=== PATIENT | male | born 1950 | race Caucasian/White ===

== ENCOUNTER 2019-06-02 20:59 | Inpatient (IN) | payer OTHER ==
[2019-06-02] MEDS ORDERED: ALBUTEROL/IPRATROPIUM (NEB) 3 ML AMP HHN (22:30)
[2019-06-02] MEDS ORDERED: HYDROCODONE/APAP (5/325) TAB PO (22:30)
[2019-06-02] MEDS ORDERED: ACETAMINOPHEN 325 MG TAB PO (22:30)
[2019-06-02] MEDS ORDERED: ONDANSETRON 4 MG INJ IV (22:30)
[2019-06-02] MEDS ORDERED: PIPER-TAZO 3.375 GM IV (PMX) 100 ML IVPB (23:00)
[2019-06-02] MEDS ORDERED: CYCLOBENZAPRINE 10 MG TAB PO (23:00)
[2019-06-02] MEDS ORDERED: VANCOMYCIN IV PER PHARMACY XX (23:00)
[2019-06-02] MEDS: morphine 2 MG INJ IV (23:10)
[2019-06-02] MEDS: PIPER-TAZO 2.25 GM (PMX) 50 ML IVPB (23:23)
[2019-06-03] MEDS ORDERED: PIPER-TAZO 3.375 GM IV (PMX) 100 ML IVPB
[2019-06-03] MEDS: VANCOMYCIN 1 GM 250 ML IVPB (00:27)
[2019-06-03] MEDS ORDERED: SODIUM CHLORIDE 0.9% 1L BAG IV (01:30)
[2019-06-03] MEDS: PANTOPRAZOLE (EC) 40 MG TAB PO (05:14)
[2019-06-03] MEDS: PIPER-TAZO 2.25 GM (PMX) 50 ML IVPB ×3 (05:14→21:40)
[2019-06-03 06:23] LABS: ADD MAN DIFF? NO
[2019-06-03] MEDS: HYDROCODONE/APAP (5/325) TAB PO (06:32)
[2019-06-03 06:37] LABS: BASOPHILS % 0.3 % (0.0-2.0); HEMATOCRIT 32.4 % (42.0-52.0); HEMOGLOBIN 10.4 g/dl (14.0-18.0); LYMPHOCYTES # 0.9 10^3/ul (0.8-2.9); LYMPHOCYTES % 12.5 % (15.0-51.0); MEAN CORPUSCULAR HEMOGLOBIN 26.6 pg (29.0-33.0); MEAN CORPUSCULAR HGB CONC 32.1 g/dl (32.0-37.0); MEAN CORPUSCULAR VOLUME 82.9 fl (82.0-101.0); MEAN PLATELET VOLUME 8.6 fl (7.4-10.4); MONOCYTE # 0.6 10^3/ul (0.3-0.9); MONOCYTES % 8.1 % (0.0-11.0); NEUTROPHIL # 5.5 10^3/ul (1.6-7.5); NEUTROPHILS % 78.7 % (39.0-77.0); PLATELET COUNT 347 10^3/UL (140-415); RED BLOOD COUNT 3.91 10^6/ul (4.70-6.10); RED CELL DISTRIBUTION WIDTH 14.9 % (11.5-14.5)
[2019-06-03 07:03] LABS: ALANINE AMINOTRANSFERASE 8 IU/L (13-69); ALBUMIN 3.4 g/dl (3.3-4.9); ALBUMIN/GLOBULIN RATIO 0.94; ALKALINE PHOSPHATASE 72 IU/L (42-121); ANION GAP 16 (5-13); ASPARTATE AMINO TRANSFERASE 16 IU/L (15-46); BILIRUBIN,INDIRECT 0.1 mg/dl (0-1.1); BILIRUBIN,TOTAL 0.1 mg/dl (0.2-1.3); BLOOD UREA NITROGEN 71 mg/dl (7-20); CARBON DIOXIDE 25 mmol/L (21-31); CHLORIDE 94 mmol/L (97-110); CHOL/HDL RATIO 4.2 RATIO; CHOLESTEROL 158 mg/dl (100-200); CREATININE 10.14 mg/dl (0.61-1.24); Estimated GFR 5 mL/min (>60); GLUCOSE 166 mg/dl (70-220); HDL CHOLESTEROL 37 mg/dl (30-78); LDL CHOLESTEROL,CALCULATED 102 mg/dl; MAGNESIUM 2.3 mg/dl (1.7-2.5); POTASSIUM 5.5 mmol/L (3.5-5.1); SODIUM 135 mmol/L (135-144); TRIGLYCERIDES 96 mg/dl (0-149)
[2019-06-03 07:23] LABS: HEPATITIS B SURFACE ANTIGEN NEGATIVE (NEGATIVE)
[2019-06-03 07:44] LABS: HEMOGLOBIN A1C 4.9 % (0-5.9)
[2019-06-03] MEDS: SEVELAMER CARBONATE 800 MG TABLET PO ×3 (08:45→17:55)
[2019-06-03] MEDS: AMLODIPINE 10 MG TAB PO (08:46)
[2019-06-03] MEDS: HEPARIN 5,000 UNIT/1 ML VIAL SC ×2 (08:52→21:53)
[2019-06-03] MEDS ORDERED: NON-FORMULARY/PATIENT OWN MED (Omeprazole* 20 MG) PO (09:00)
[2019-06-03] MEDS: HEPARIN 1000 UNITS/ML 10 ML INJ CATHETER (12:23)
[2019-06-03] MEDS: METHOCARBAMOL 500 MG TAB PO ×2 (14:07→21:39)
[2019-06-03] MEDS: morphine 2 MG INJ IV (16:35)
[2019-06-03] MEDS: GABAPENTIN 100 MG CAP PO (21:39)
[2019-06-03] MEDS: OXYCODONE/ACETAMINOPHEN (10/325) TAB PO (21:40)
[2019-06-04] MEDS: PANTOPRAZOLE (EC) 40 MG TAB PO (06:32)
[2019-06-04] MEDS: OXYCODONE/ACETAMINOPHEN (10/325) TAB PO ×3 (06:32→22:09)
[2019-06-04] MEDS: PIPER-TAZO 2.25 GM (PMX) 50 ML IVPB ×2 (06:32→13:03)
[2019-06-04 06:46] LABS: ADD MAN DIFF? NO
[2019-06-04 06:49] LABS: BASOPHILS % 0.6 % (0.0-2.0); EOSINOPHILS # 0.1 10^3/ul (0.0-0.5); EOSINOPHILS % 1.7 % (0.0-7.0); HEMATOCRIT 31.4 % (42.0-52.0); HEMOGLOBIN 9.8 g/dl (14.0-18.0); LYMPHOCYTES # 1.4 10^3/ul (0.8-2.9); LYMPHOCYTES % 19.9 % (15.0-51.0); MEAN CORPUSCULAR HEMOGLOBIN 26.5 pg (29.0-33.0); MEAN CORPUSCULAR HGB CONC 31.2 g/dl (32.0-37.0); MEAN CORPUSCULAR VOLUME 84.9 fl (82.0-101.0); MEAN PLATELET VOLUME 8.5 fl (7.4-10.4); MONOCYTES % 13.8 % (0.0-11.0); NEUTROPHIL # 4.6 10^3/ul (1.6-7.5); NEUTROPHILS % 63.7 % (39.0-77.0); PLATELET COUNT 342 10^3/UL (140-415)
[2019-06-04 06:49] LABS: WHITE BLOOD COUNT 7.3 10^3/ul (4.8-10.8)
[2019-06-04 07:09] LABS: C-REACTIVE PROTEIN 8.6 mg/dl (0.0-0.9)
[2019-06-04 07:10] LABS: ANION GAP 13 (5-13); BLOOD UREA NITROGEN 48 mg/dl (7-20); CALCIUM 8.8 mg/dl (8.4-10.2); CARBON DIOXIDE 28 mmol/L (21-31); CHLORIDE 98 mmol/L (97-110); CREATININE 7.18 mg/dl (0.61-1.24); Estimated GFR 8 mL/min (>60); GLUCOSE 100 mg/dl (70-220); MAGNESIUM 2.2 mg/dl (1.7-2.5); PHOSPHORUS 5.6 mg/dl (2.5-4.9); POTASSIUM 4.5 mmol/L (3.5-5.1); SODIUM 139 mmol/L (135-144)
[2019-06-04 08:43] LABS: ERYTHROCYTE SEDIMENTATION RATE 58 mm/Hr (0-20)
[2019-06-04] MEDS: SEVELAMER CARBONATE 800 MG TABLET PO ×3 (08:46→17:12)
[2019-06-04] MEDS: GABAPENTIN 100 MG CAP PO ×2 (08:46→20:42)
[2019-06-04] MEDS: METHOCARBAMOL 500 MG TAB PO (08:46)
[2019-06-04] MEDS: AMLODIPINE 10 MG TAB PO (08:47)
[2019-06-04] MEDS: HEPARIN 5,000 UNIT/1 ML VIAL SC ×2 (08:54→20:44)
[2019-06-04 12:38] LABS: PROCALCITONIN 1.45 ng/mL (0.00-0.10)
[2019-06-04] MEDS: POLYETHYLENE GLYCOL 17 GM PACKET PO (13:30)
[2019-06-04 13:40] LABS: PROSTATE SPECIFIC ANTIGEN 4.7 ng/ml (0.0-4.0)
[2019-06-04] MEDS: CEFTRIAXONE 1 GM/50 ML (PMX) 50 ML IVPB (16:05)
[2019-06-04 16:39] LABS: ADD UMIC YES; UR ASCORBIC ACID NEGATIVE (NEGATIVE); UR BILIRUBIN (Dip) NEGATIVE (NEGATIVE); UR BLOOD (Dip) NEGATIVE (NEGATIVE); UR CLARITY CLEAR (CLEAR); UR COLOR YELLOW (YELLOW); UR GLUCOSE (Dip) 1+ mg/dL (NEGATIVE); UR KETONES (Dip) NEGATIVE (NEGATIVE); UR LEUKOCYTE ESTERASE (Dip) NEGATIVE Leu/ul (NEGATIVE); UR NITRITE (Dip) NEGATIVE (NEGATIVE); UR RBC 1 /HPF (0-5); UR TOTAL PROTEIN (Dip) 3+ mg/dl (NEGATIVE); UR UROBILINOGEN (Dip) NEGATIVE (NEGATIVE); UR WBC 3 /HPF (0-5)
[2019-06-04] MEDS: morphine 2 MG INJ IV (19:35)
[2019-06-04] MEDS: DOCUSATE SODIUM 100 MG CAP PO (20:42)
[2019-06-05] MEDS: PANTOPRAZOLE (EC) 40 MG TAB PO (06:05)
[2019-06-05] MEDS: morphine 2 MG INJ IV ×3 (06:19→23:55)
[2019-06-05 06:44] LABS: ADD MAN DIFF? NO
[2019-06-05 06:49] LABS: WHITE BLOOD COUNT 6.6 10^3/ul (4.8-10.8)
[2019-06-05 06:49] LABS: BASOPHIL # 0.1 10^3/ul (0.0-0.1); BASOPHILS % 1.1 % (0.0-2.0); EOSINOPHILS # 0.4 10^3/ul (0.0-0.5); HEMATOCRIT 31.7 % (42.0-52.0); HEMOGLOBIN 9.9 g/dl (14.0-18.0); LYMPHOCYTES # 1.7 10^3/ul (0.8-2.9); LYMPHOCYTES % 25.7 % (15.0-51.0); MEAN CORPUSCULAR HEMOGLOBIN 26.5 pg (29.0-33.0); MEAN CORPUSCULAR HGB CONC 31.2 g/dl (32.0-37.0); MEAN PLATELET VOLUME 8.3 fl (7.4-10.4); MONOCYTE # 0.9 10^3/ul (0.3-0.9); MONOCYTES % 13.4 % (0.0-11.0); NEUTROPHIL # 3.5 10^3/ul (1.6-7.5); NEUTROPHILS % 53.3 % (39.0-77.0); PLATELET COUNT 329 10^3/UL (140-415); RED BLOOD COUNT 3.73 10^6/ul (4.70-6.10); RED CELL DISTRIBUTION WIDTH 14.8 % (11.5-14.5)
[2019-06-05 07:04] LABS: INR 0.96; PROTIME 12.9 Sec (11.9-14.9)
[2019-06-05 07:05] LABS: PARTIAL THROMBOPLASTIN TIME 37.6 Sec (23.0-35.0)
[2019-06-05 07:22] LABS: VANCOMYCIN,RANDOM 9.1 ug/ml
[2019-06-05 07:33] LABS: ANION GAP 15 (5-13); BLOOD UREA NITROGEN 61 mg/dl (7-20); CALCIUM 8.5 mg/dl (8.4-10.2); CARBON DIOXIDE 26 mmol/L (21-31); CHLORIDE 95 mmol/L (97-110); CREATININE 9.16 mg/dl (0.61-1.24); Estimated GFR 6 mL/min (>60); GLUCOSE 129 mg/dl (70-220); POTASSIUM 4.6 mmol/L (3.5-5.1); SODIUM 136 mmol/L (135-144)
[2019-06-05] MEDS: SEVELAMER CARBONATE 800 MG TABLET PO ×3 (07:55→17:36)
[2019-06-05] MEDS: DOCUSATE SODIUM 100 MG CAP PO ×2 (08:14→20:49)
[2019-06-05] MEDS: GABAPENTIN 100 MG CAP PO ×2 (08:14→20:49)
[2019-06-05] MEDS: POLYETHYLENE GLYCOL 17 GM PACKET PO (08:17)
[2019-06-05] MEDS: AMLODIPINE 10 MG TAB PO (08:21)
[2019-06-05] MEDS: HEPARIN 5,000 UNIT/1 ML VIAL SC ×2 (08:21→20:59)
[2019-06-05] MEDS: LIDOCAINE 1% (MDV) 20 ML INJ INJ (10:12)
[2019-06-05] MEDS: OXYCODONE/ACETAMINOPHEN (10/325) TAB PO (13:47)
[2019-06-05] MEDS: VANCOMYCIN 1 GM 250 ML IVPB (13:50)
[2019-06-05] MEDS: CEFTRIAXONE 1 GM/50 ML (PMX) 50 ML IVPB ×2 (13:50→20:49)
[2019-06-06] MEDS ORDERED: SODIUM CHLORIDE 0.9% 1L BAG IV (01:30)
[2019-06-06] MEDS: PANTOPRAZOLE (EC) 40 MG TAB PO (05:16)
[2019-06-06 05:50] LABS: ADD MAN DIFF? NO
[2019-06-06 05:56] LABS: WHITE BLOOD COUNT 7.5 10^3/ul (4.8-10.8)
[2019-06-06 05:56] LABS: BASOPHIL # 0.1 10^3/ul (0.0-0.1); BASOPHILS % 0.7 % (0.0-2.0); EOSINOPHILS # 0.3 10^3/ul (0.0-0.5); EOSINOPHILS % 3.6 % (0.0-7.0); HEMATOCRIT 34.1 % (42.0-52.0); HEMOGLOBIN 10.3 g/dl (14.0-18.0); LYMPHOCYTES # 1.3 10^3/ul (0.8-2.9); LYMPHOCYTES % 17.3 % (15.0-51.0); MEAN CORPUSCULAR HEMOGLOBIN 25.8 pg (29.0-33.0); MEAN CORPUSCULAR HGB CONC 30.2 g/dl (32.0-37.0); MEAN CORPUSCULAR VOLUME 85.5 fl (82.0-101.0); MEAN PLATELET VOLUME 8.6 fl (7.4-10.4); MONOCYTES % 13.4 % (0.0-11.0); NEUTROPHIL # 4.9 10^3/ul (1.6-7.5); NEUTROPHILS % 64.6 % (39.0-77.0); PLATELET COUNT 313 10^3/UL (140-415); RED BLOOD COUNT 3.99 10^6/ul (4.70-6.10); RED CELL DISTRIBUTION WIDTH 14.8 % (11.5-14.5)
[2019-06-06 06:12] LABS: IRON 34 ug/dl (35-150)
[2019-06-06 06:16] LABS: ANION GAP 11 (5-13); BLOOD UREA NITROGEN 46 mg/dl (7-20); CARBON DIOXIDE 30 mmol/L (21-31); CHLORIDE 97 mmol/L (97-110); CREATININE 6.99 mg/dl (0.61-1.24); Estimated GFR 8 mL/min (>60); GLUCOSE 91 mg/dl (70-220); POTASSIUM 4.6 mmol/L (3.5-5.1); SODIUM 138 mmol/L (135-144)
[2019-06-06 06:21] LABS: % IRON SATURATION 17 % SAT (22-52); TOTAL IRON BINDING CAPACITY 195 ug/dl (241-421)
[2019-06-06] MEDS: morphine 2 MG INJ IV ×2 (06:43→10:20)
[2019-06-06 07:21] LABS: PHOSPHORUS 4.7 mg/dl (2.5-4.9)
[2019-06-06 07:21] LABS: MAGNESIUM 2.2 mg/dl (1.7-2.5)
[2019-06-06] MEDS: SEVELAMER CARBONATE 800 MG TABLET PO ×3 (08:00→17:43)
[2019-06-06] MEDS: AMLODIPINE 10 MG TAB PO (09:00)
[2019-06-06] MEDS: DOCUSATE SODIUM 100 MG CAP PO ×2 (09:00→23:01)
[2019-06-06] MEDS: HEPARIN 5,000 UNIT/1 ML VIAL SC ×2 (09:00→23:02)
[2019-06-06] MEDS: GABAPENTIN 100 MG CAP PO ×2 (09:00→23:01)
[2019-06-06] MEDS: CEFTRIAXONE 1 GM/50 ML (PMX) 50 ML IVPB ×2 (09:20→23:03)
[2019-06-06] MEDS: NACL 0.9% 3 ML SYG IV (10:21)
[2019-06-06] MEDS: IODIXANOL LOCM 100 ML BTL (10:38)
[2019-06-06] MEDS: SOD CHLORIDE 0.9% 100 ML (10:38)
[2019-06-06] MEDS ORDERED: ONDANSETRON 4 MG INJ IV (14:00)
[2019-06-06] MEDS ORDERED: OXYCODONE/ACETAMINOPHEN (5/325) TAB PO ×2 (14:00)
[2019-06-06] MEDS ORDERED: HYDROmorphONE 1 MG/5 ML IV SYRINGE IV ×3 (14:00)
[2019-06-06] MEDS: PROPOFOL 20 ML (14:12)
[2019-06-06] MEDS: FENTAnyl 50 MCG/ML VIAL (14:12)
[2019-06-06] MEDS: LIDOCAINE 1% (MDV) 20 ML INJ (14:26)
[2019-06-06] MEDS: SOD FERRIC GLUC COMPLX 125 MG in SOD CHLORIDE 0.9% 100 ML IVPB (17:40)
[2019-06-06] MEDS: POLYETHYLENE GLYCOL 17 GM PACKET PO (17:40)
[2019-06-06] MEDS: morphine 4 MG/ML VIAL IV ×2 (17:56→23:03)
[2019-06-06] MEDS: LIDOCAINE 1% (MDV) 20 ML INJ INJ (20:09)
[2019-06-07] MEDS: morphine 4 MG/ML VIAL IV ×4 (03:27→22:13)
[2019-06-07 05:44] LABS: ADD MAN DIFF? NO
[2019-06-07 05:48] LABS: BASOPHIL # 0.1 10^3/ul (0.0-0.1); BASOPHILS % 0.7 % (0.0-2.0); EOSINOPHILS # 0.3 10^3/ul (0.0-0.5); EOSINOPHILS % 4.5 % (0.0-7.0); HEMATOCRIT 30.5 % (42.0-52.0); HEMOGLOBIN 9.5 g/dl (14.0-18.0); LYMPHOCYTES # 1.1 10^3/ul (0.8-2.9); LYMPHOCYTES % 14.3 % (15.0-51.0); MEAN CORPUSCULAR HEMOGLOBIN 26.6 pg (29.0-33.0); MEAN CORPUSCULAR HGB CONC 31.1 g/dl (32.0-37.0); MEAN CORPUSCULAR VOLUME 85.4 fl (82.0-101.0); MEAN PLATELET VOLUME 8.6 fl (7.4-10.4); MONOCYTE # 1.2 10^3/ul (0.3-0.9); NEUTROPHIL # 4.8 10^3/ul (1.6-7.5); NEUTROPHILS % 64.1 % (39.0-77.0); PLATELET COUNT 253 10^3/UL (140-415); RED BLOOD COUNT 3.57 10^6/ul (4.70-6.10); RED CELL DISTRIBUTION WIDTH 14.9 % (11.5-14.5)
[2019-06-07 05:48] LABS: WHITE BLOOD COUNT 7.5 10^3/ul (4.8-10.8)
[2019-06-07] MEDS: PANTOPRAZOLE (EC) 40 MG TAB PO (06:00)
[2019-06-07 06:06] LABS: ANION GAP 10 (5-13); BLOOD UREA NITROGEN 32 mg/dl (7-20); CALCIUM 8.7 mg/dl (8.4-10.2); CARBON DIOXIDE 28 mmol/L (21-31); CHLORIDE 99 mmol/L (97-110); CREATININE 5.35 mg/dl (0.61-1.24); Estimated GFR 11 mL/min (>60); GLUCOSE 89 mg/dl (70-220); POTASSIUM 4.2 mmol/L (3.5-5.1); SODIUM 137 mmol/L (135-144)
[2019-06-07] MEDS: SEVELAMER CARBONATE 800 MG TABLET PO ×4 (08:00→18:00)
[2019-06-07] MEDS: HEPARIN 5,000 UNIT/1 ML VIAL SC ×2 (08:04→22:06)
[2019-06-07] MEDS: GABAPENTIN 100 MG CAP PO ×2 (08:37→22:03)
[2019-06-07] MEDS: DOCUSATE SODIUM 100 MG CAP PO ×2 (08:37→22:02)
[2019-06-07] MEDS: POLYETHYLENE GLYCOL 17 GM PACKET PO (08:37)
[2019-06-07] MEDS: AMLODIPINE 10 MG TAB PO (08:38)
[2019-06-07] MEDS: CEFTRIAXONE 1 GM/50 ML (PMX) 50 ML IVPB ×2 (08:38→22:03)
[2019-06-07] MEDS: HYDROCODONE/APAP (7.5/325) TAB PO (08:51)
[2019-06-07] MEDS: SOD FERRIC GLUC COMPLX 125 MG in SOD CHLORIDE 0.9% 100 ML IVPB (12:49)
[2019-06-07] MEDS ORDERED: SOD FERRIC GLUC COMPLX 125 MG in SOD CHLORIDE 0.9% 100 ML IVPB (13:00)
[2019-06-07] MEDS: LIDOCAINE 1% (MPF) 5 ML VIAL (15:08)
[2019-06-07] MEDS: LIDOCAINE 1% (MDV) 20 ML INJ INJ (17:23)
[2019-06-08] MEDS: morphine 4 MG/ML VIAL IV ×3 (04:46→20:18)
[2019-06-08] MEDS: PANTOPRAZOLE (EC) 40 MG TAB PO (05:44)
[2019-06-08 07:26] LABS: VANCOMYCIN,RANDOM < 5.0 ug/ml
[2019-06-08] MEDS: CEFTRIAXONE 1 GM/50 ML (PMX) 50 ML IVPB ×2 (08:25→20:17)
[2019-06-08] MEDS: HYDROCODONE/APAP (7.5/325) TAB PO (08:25)
[2019-06-08] MEDS: SEVELAMER CARBONATE 800 MG TABLET PO ×3 (08:26→17:52)
[2019-06-08] MEDS: DOCUSATE SODIUM 100 MG CAP PO ×2 (08:28→20:17)
[2019-06-08] MEDS: GABAPENTIN 100 MG CAP PO (08:28)
[2019-06-08] MEDS: AMLODIPINE 10 MG TAB PO (08:28)
[2019-06-08] MEDS: POLYETHYLENE GLYCOL 17 GM PACKET PO (08:29)
[2019-06-08] MEDS: HEPARIN 5,000 UNIT/1 ML VIAL SC ×2 (08:45→20:28)
[2019-06-08] MEDS: VANCOMYCIN 1 GM 250 ML IVPB (11:33)
[2019-06-08] MEDS: SOD FERRIC GLUC COMPLX 125 MG in SOD CHLORIDE 0.9% 100 ML IVPB (14:30)
[2019-06-08] MEDS: DICLOFENAC SODIUM 1% GEL 100 GM TUBE TP ×2 (17:00→20:18)
[2019-06-08] MEDS: PREGABALIN 75 MG CAP PO (20:17)
[2019-06-09] MEDS: PANTOPRAZOLE (EC) 40 MG TAB PO (05:56)
[2019-06-09] MEDS: morphine 4 MG/ML VIAL IV ×3 (06:50→21:55)
[2019-06-09 06:52] LABS: C-REACTIVE PROTEIN 20.2 mg/dl (0.0-0.9)
[2019-06-09] MEDS: PREGABALIN 75 MG CAP PO ×2 (08:46→21:22)
[2019-06-09] MEDS: SEVELAMER CARBONATE 800 MG TABLET PO ×3 (08:47→18:00)
[2019-06-09] MEDS: POLYETHYLENE GLYCOL 17 GM PACKET PO (08:47)
[2019-06-09] MEDS: DOCUSATE SODIUM 100 MG CAP PO ×2 (08:47→21:22)
[2019-06-09] MEDS: HYDROCODONE/APAP (7.5/325) TAB PO ×2 (08:47→19:11)
[2019-06-09] MEDS: CEFTRIAXONE 1 GM/50 ML (PMX) 50 ML IVPB ×2 (08:48→21:20)
[2019-06-09] MEDS: HEPARIN 5,000 UNIT/1 ML VIAL SC ×2 (08:50→21:34)
[2019-06-09] MEDS: AMLODIPINE 10 MG TAB PO ×2 (09:00→15:36)
[2019-06-09 09:10] LABS: ERYTHROCYTE SEDIMENTATION RATE 71 mm/Hr (0-20)
[2019-06-09 09:17] LABS: PROCALCITONIN 1.06 ng/mL (0.00-0.10)
[2019-06-09] MEDS: DICLOFENAC SODIUM 1% GEL 100 GM TUBE TP ×4 (13:00→21:23)
[2019-06-09] MEDS: SOD FERRIC GLUC COMPLX 125 MG in SOD CHLORIDE 0.9% 100 ML IVPB (15:35)
[2019-06-09] MEDS: CELECOXIB 100 MG CAP PO (21:22)
[2019-06-09] MEDS: LOSARTAN 25 MG TAB PO (21:22)
[2019-06-10 05:56] LABS: VANCOMYCIN,RANDOM 11.8 ug/ml
[2019-06-10] MEDS: PANTOPRAZOLE (EC) 40 MG TAB PO (06:30)
[2019-06-10] MEDS: SEVELAMER CARBONATE 800 MG TABLET PO ×3 (08:51→18:00)
[2019-06-10] MEDS: DOCUSATE SODIUM 100 MG CAP PO ×2 (08:52→21:44)
[2019-06-10] MEDS: CELECOXIB 100 MG CAP PO ×2 (08:53→21:43)
[2019-06-10] MEDS: PREGABALIN 75 MG CAP PO ×2 (08:53→21:47)
[2019-06-10] MEDS: AMLODIPINE 5 MG TAB PO (08:53)
[2019-06-10] MEDS: POLYETHYLENE GLYCOL 17 GM PACKET PO (08:54)
[2019-06-10] MEDS: CEFTRIAXONE 1 GM/50 ML (PMX) 50 ML IVPB ×2 (08:54→20:28)
[2019-06-10] MEDS: DICLOFENAC SODIUM 1% GEL 100 GM TUBE TP ×4 (08:54→23:02)
[2019-06-10] MEDS: LOSARTAN 25 MG TAB PO ×2 (08:54→21:45)
[2019-06-10] MEDS: HYDROCODONE/APAP (7.5/325) TAB PO ×2 (08:55→21:47)
[2019-06-10] MEDS: HEPARIN 5,000 UNIT/1 ML VIAL SC ×2 (09:03→21:51)
[2019-06-10] MEDS: SOD FERRIC GLUC COMPLX 125 MG in SOD CHLORIDE 0.9% 100 ML IVPB (12:47)
[2019-06-10] MEDS: VANCOMYCIN 1 GM 250 ML IVPB (14:06)
[2019-06-10] MEDS: morphine 4 MG/ML VIAL IV (14:15)
[2019-06-11 05:29] LABS: ADD MAN DIFF? NO
[2019-06-11 05:30] LABS: BASOPHIL # 0.1 10^3/ul (0.0-0.1); BASOPHILS % 0.7 % (0.0-2.0); EOSINOPHILS # 0.5 10^3/ul (0.0-0.5); EOSINOPHILS % 4.4 % (0.0-7.0); HEMATOCRIT 31.1 % (42.0-52.0); HEMOGLOBIN 9.4 g/dl (14.0-18.0); LYMPHOCYTES # 1.2 10^3/ul (0.8-2.9); LYMPHOCYTES % 12.1 % (15.0-51.0); MEAN CORPUSCULAR HEMOGLOBIN 26.3 pg (29.0-33.0); MEAN CORPUSCULAR HGB CONC 30.2 g/dl (32.0-37.0); MEAN CORPUSCULAR VOLUME 86.9 fl (82.0-101.0); MEAN PLATELET VOLUME 9.2 fl (7.4-10.4); MONOCYTE # 1.1 10^3/ul (0.3-0.9); MONOCYTES % 10.9 % (0.0-11.0); NEUTROPHIL # 7.3 10^3/ul (1.6-7.5); NEUTROPHILS % 71.5 % (39.0-77.0); PLATELET COUNT 308 10^3/UL (140-415); RED BLOOD COUNT 3.58 10^6/ul (4.70-6.10); RED CELL DISTRIBUTION WIDTH 14.9 % (11.5-14.5)
[2019-06-11 05:30] LABS: WHITE BLOOD COUNT 10.3 10^3/ul (4.8-10.8)
[2019-06-11] MEDS: PANTOPRAZOLE (EC) 40 MG TAB PO (05:38)
[2019-06-11 06:03] LABS: PHOSPHORUS 4.3 mg/dl (2.5-4.9)
[2019-06-11 06:28] LABS: ALANINE AMINOTRANSFERASE 18 IU/L (13-69); ALBUMIN 3.2 g/dl (3.3-4.9); ALBUMIN/GLOBULIN RATIO 0.91; ALKALINE PHOSPHATASE 97 IU/L (42-121); ANION GAP 12 (5-13); ASPARTATE AMINO TRANSFERASE 26 IU/L (15-46); BILIRUBIN,INDIRECT 0.1 mg/dl (0-1.1); BILIRUBIN,TOTAL 0.1 mg/dl (0.2-1.3); BLOOD UREA NITROGEN 39 mg/dl (7-20); CARBON DIOXIDE 31 mmol/L (21-31); CHLORIDE 97 mmol/L (97-110); CREATININE 6.64 mg/dl (0.61-1.24); Estimated GFR 8 mL/min (>60); GLUCOSE 88 mg/dl (70-220); POTASSIUM 4.4 mmol/L (3.5-5.1); SODIUM 140 mmol/L (135-144); TOTAL PROTEIN 6.7 g/dl (6.1-8.1)
[2019-06-11 07:32] LABS: ERYTHROCYTE SEDIMENTATION RATE 78 mm/Hr (0-20)
[2019-06-11] MEDS: POLYETHYLENE GLYCOL 17 GM PACKET PO (08:11)
[2019-06-11] MEDS: SEVELAMER CARBONATE 800 MG TABLET PO ×3 (08:11→17:27)
[2019-06-11] MEDS: CEFTRIAXONE 1 GM/50 ML (PMX) 50 ML IVPB ×2 (08:11→20:41)
[2019-06-11] MEDS: DOCUSATE SODIUM 100 MG CAP PO ×2 (08:11→20:42)
[2019-06-11] MEDS: CELECOXIB 100 MG CAP PO ×2 (08:12→20:41)
[2019-06-11] MEDS: PREGABALIN 75 MG CAP PO ×2 (08:12→20:43)
[2019-06-11] MEDS: LOSARTAN 25 MG TAB PO ×2 (08:12→20:41)
[2019-06-11] MEDS: AMLODIPINE 5 MG TAB PO (08:13)
[2019-06-11] MEDS: DICLOFENAC SODIUM 1% GEL 100 GM TUBE TP ×4 (08:14→20:43)
[2019-06-11] MEDS: HEPARIN 5,000 UNIT/1 ML VIAL SC ×2 (08:15→20:45)
[2019-06-11] MEDS: HYDROCODONE/APAP (7.5/325) TAB PO ×2 (08:28→15:52)
[2019-06-11] MEDS: traMADol 50 MG TAB PO ×2 (12:10→20:43)
[2019-06-11] MEDS: metroNIDAZOLE 500 MG/NS (PMX) 100 ML IVPB ×2 (14:37→22:04)
[2019-06-12] MEDS: PANTOPRAZOLE (EC) 40 MG TAB PO (05:31)
[2019-06-12] MEDS: metroNIDAZOLE 500 MG/NS (PMX) 100 ML IVPB (05:31)
[2019-06-12 06:10] LABS: ANION GAP 11 (5-13); BLOOD UREA NITROGEN 52 mg/dl (7-20); CALCIUM 8.8 mg/dl (8.4-10.2); CARBON DIOXIDE 26 mmol/L (21-31); CHLORIDE 96 mmol/L (97-110); CREATININE 8.14 mg/dl (0.61-1.24); Estimated GFR 7 mL/min (>60); GLUCOSE 81 mg/dl (70-220); POTASSIUM 4.6 mmol/L (3.5-5.1); SODIUM 133 mmol/L (135-144)
[2019-06-12 06:32] LABS: C-REACTIVE PROTEIN 22.1 mg/dl (0.0-0.9)
[2019-06-12 06:47] LABS: VANCOMYCIN,RANDOM 20.7 ug/ml
[2019-06-12 08:26] LABS: ERYTHROCYTE SEDIMENTATION RATE 83 mm/Hr (0-20)
[2019-06-12] MEDS: traMADol 50 MG TAB PO ×3 (08:41→21:21)
[2019-06-12] MEDS: CEFTRIAXONE 1 GM/50 ML (PMX) 50 ML IVPB (08:41)
[2019-06-12] MEDS: PREGABALIN 75 MG CAP PO ×2 (08:41→21:22)
[2019-06-12] MEDS: DOCUSATE SODIUM 100 MG CAP PO ×2 (08:41→21:21)
[2019-06-12] MEDS: CELECOXIB 100 MG CAP PO ×2 (08:41→21:21)
[2019-06-12] MEDS: POLYETHYLENE GLYCOL 17 GM PACKET PO (08:42)
[2019-06-12] MEDS: SEVELAMER CARBONATE 800 MG TABLET PO ×3 (08:42→17:36)
[2019-06-12] MEDS: HEPARIN 5,000 UNIT/1 ML VIAL SC (08:43)
[2019-06-12] MEDS: DICLOFENAC SODIUM 1% GEL 100 GM TUBE TP ×4 (08:44→21:27)
[2019-06-12] MEDS: LOSARTAN 25 MG TAB PO ×2 (08:48→21:23)
[2019-06-12] MEDS: AMLODIPINE 5 MG TAB PO (08:49)
[2019-06-12] MEDS: LIDOCAINE 1% (MDV) 20 ML INJ INJ (09:44)
[2019-06-12] MEDS ORDERED: MEROPENEM 500MG/50 ML (PMX) 50 ML IVPB (10:00)
[2019-06-12] MEDS: RIFAMPIN 300 MG CAP PO (10:00)
[2019-06-12 11:40] LABS: INR 0.94; PROTIME 12.7 Sec (11.9-14.9)
[2019-06-12] MEDS: MEROPENEM 1 GM/50ML(PMX) 50 ML IVPB (13:40)
[2019-06-12] MEDS: HYDROCODONE/APAP (7.5/325) TAB PO (16:00)
[2019-06-12] MEDS: morphine 4 MG/ML VIAL IV (20:06)
[2019-06-12] MEDS: MEROPENEM 500MG/50 ML (PMX) 50 ML IVPB (21:21)
[2019-06-12] MEDS: LORAZEPAM 2 MG INJ IV (22:44)
[2019-06-13 05:40] LABS: ADD MAN DIFF? NO
[2019-06-13 05:43] LABS: WHITE BLOOD COUNT 8.6 10^3/ul (4.8-10.8)
[2019-06-13 05:43] LABS: BASOPHILS % 0.5 % (0.0-2.0); EOSINOPHILS # 0.3 10^3/ul (0.0-0.5); EOSINOPHILS % 3.2 % (0.0-7.0); HEMATOCRIT 27.7 % (42.0-52.0); HEMOGLOBIN 8.6 g/dl (14.0-18.0); LYMPHOCYTES # 1.2 10^3/ul (0.8-2.9); LYMPHOCYTES % 13.7 % (15.0-51.0); MEAN CORPUSCULAR HEMOGLOBIN 26.6 pg (29.0-33.0); MEAN CORPUSCULAR VOLUME 85.8 fl (82.0-101.0); MEAN PLATELET VOLUME 9.4 fl (7.4-10.4); MONOCYTES % 11.7 % (0.0-11.0); NEUTROPHILS % 70.4 % (39.0-77.0); PLATELET COUNT 277 10^3/UL (140-415); RED BLOOD COUNT 3.23 10^6/ul (4.70-6.10); RED CELL DISTRIBUTION WIDTH 15.1 % (11.5-14.5)
[2019-06-13] MEDS: PANTOPRAZOLE (EC) 40 MG TAB PO (05:44)
[2019-06-13 06:09] LABS: ANION GAP 10 (5-13); BLOOD UREA NITROGEN 39 mg/dl (7-20); CALCIUM 8.5 mg/dl (8.4-10.2); CARBON DIOXIDE 29 mmol/L (21-31); CHLORIDE 99 mmol/L (97-110); CREATININE 6.25 mg/dl (0.61-1.24); Estimated GFR 9 mL/min (>60); GLUCOSE 109 mg/dl (70-220); POTASSIUM 3.9 mmol/L (3.5-5.1); SODIUM 138 mmol/L (135-144)
[2019-06-13] MEDS: PREGABALIN 75 MG CAP PO ×2 (08:41→20:30)
[2019-06-13] MEDS: traMADol 50 MG TAB PO ×2 (08:41→20:32)
[2019-06-13] MEDS: POLYETHYLENE GLYCOL 17 GM PACKET PO (09:17)
[2019-06-13] MEDS: RIFAMPIN 300 MG CAP PO (09:18)
[2019-06-13] MEDS: MEROPENEM 500MG/50 ML (PMX) 50 ML IVPB ×2 (09:18→20:36)
[2019-06-13] MEDS: SEVELAMER CARBONATE 800 MG TABLET PO ×3 (09:18→18:58)
[2019-06-13] MEDS: LOSARTAN 25 MG TAB PO ×2 (09:19→20:32)
[2019-06-13] MEDS: DOCUSATE SODIUM 100 MG CAP PO ×2 (09:19→20:29)
[2019-06-13] MEDS: AMLODIPINE 5 MG TAB PO (09:19)
[2019-06-13] MEDS: CELECOXIB 100 MG CAP PO ×2 (09:19→20:43)
[2019-06-13] MEDS: DICLOFENAC SODIUM 1% GEL 100 GM TUBE TP ×4 (09:20→21:36)
[2019-06-13] MEDS: HYDROCODONE/APAP (7.5/325) TAB PO ×2 (10:59→22:56)
[2019-06-13 11:46] LABS: HAAIG REFLEX REFLEX FILED
[2019-06-13 12:09] LABS: INR 0.95; PROTIME 12.8 Sec (11.9-14.9)
[2019-06-13 12:10] LABS: PARTIAL THROMBOPLASTIN TIME 51.1 Sec (23.0-35.0)
[2019-06-13 12:21] LABS: TROPONIN-I < 0.012 ng/ml (0.000-0.120)
[2019-06-13 13:19] LABS: HEPATITIS B SURFACE ANTIGEN NEGATIVE (NEGATIVE)
[2019-06-13 13:37] LABS: HEPATITIS B CORE ANTIBODY NEGATIVE (NEGATIVE); HEPATITIS C VIRAL ANTIBODY NEGATIVE (NEGATIVE)
[2019-06-13] MEDS: VANCOMYCIN 750 MG (PMX) 250 ML IVPB (14:34)
[2019-06-14 00:45] LABS: PLATELET COUNT 295 10^3/UL (140-415)
[2019-06-14 01:05] LABS: INR 0.97
[2019-06-14 01:06] LABS: PARTIAL THROMBOPLASTIN TIME 44.8 Sec (23.0-35.0); THROMBIN TIME 16.4 SEC (13.8-19.1)
[2019-06-14] MEDS: morphine 4 MG/ML VIAL IV ×2 (05:15→09:39)
[2019-06-14] MEDS: PANTOPRAZOLE (EC) 40 MG TAB PO (05:15)
[2019-06-14 05:27] LABS: ADD MAN DIFF? NO
[2019-06-14 05:37] LABS: BASOPHIL # 0.1 10^3/ul (0.0-0.1); BASOPHILS % 0.8 % (0.0-2.0); EOSINOPHILS # 0.4 10^3/ul (0.0-0.5); EOSINOPHILS % 4.8 % (0.0-7.0); HEMATOCRIT 31.1 % (42.0-52.0); HEMOGLOBIN 9.4 g/dl (14.0-18.0); LYMPHOCYTES # 1.1 10^3/ul (0.8-2.9); LYMPHOCYTES % 14.7 % (15.0-51.0); MEAN CORPUSCULAR HEMOGLOBIN 26.3 pg (29.0-33.0); MEAN CORPUSCULAR HGB CONC 30.2 g/dl (32.0-37.0); MEAN CORPUSCULAR VOLUME 87.1 fl (82.0-101.0); MEAN PLATELET VOLUME 9.2 fl (7.4-10.4); MONOCYTES % 12.5 % (0.0-11.0); NEUTROPHIL # 5.2 10^3/ul (1.6-7.5); NEUTROPHILS % 66.7 % (39.0-77.0); PLATELET COUNT 302 10^3/UL (140-415); RED BLOOD COUNT 3.57 10^6/ul (4.70-6.10); RED CELL DISTRIBUTION WIDTH 15.5 % (11.5-14.5)
[2019-06-14 05:37] LABS: WHITE BLOOD COUNT 7.8 10^3/ul (4.8-10.8)
[2019-06-14 06:03] LABS: ANION GAP 12 (5-13); BLOOD UREA NITROGEN 46 mg/dl (7-20); CARBON DIOXIDE 28 mmol/L (21-31); CHLORIDE 101 mmol/L (97-110); CREATININE 8.01 mg/dl (0.61-1.24); Estimated GFR 7 mL/min (>60); GLUCOSE 109 mg/dl (70-220); POTASSIUM 4.5 mmol/L (3.5-5.1); SODIUM 141 mmol/L (135-144)
[2019-06-14 06:37] LABS: C-REACTIVE PROTEIN 20.1 mg/dl (0.0-0.9)
[2019-06-14 07:22] LABS: ERYTHROCYTE SEDIMENTATION RATE 93 mm/Hr (0-20)
[2019-06-14] MEDS: SEVELAMER CARBONATE 800 MG TABLET PO ×3 (08:00→18:00)
[2019-06-14] MEDS: LOSARTAN 25 MG TAB PO ×2 (08:06→22:30)
[2019-06-14] MEDS: DOCUSATE SODIUM 100 MG CAP PO ×2 (08:06→22:30)
[2019-06-14] MEDS: CELECOXIB 100 MG CAP PO ×2 (08:06→22:30)
[2019-06-14] MEDS: traMADol 50 MG TAB PO ×2 (08:07→22:30)
[2019-06-14] MEDS: PREGABALIN 75 MG CAP PO ×2 (08:07→22:30)
[2019-06-14] MEDS: AMLODIPINE 5 MG TAB PO (08:07)
[2019-06-14] MEDS: POLYETHYLENE GLYCOL 17 GM PACKET PO (08:07)
[2019-06-14] MEDS: RIFAMPIN 300 MG CAP PO (08:07)
[2019-06-14] MEDS: MEROPENEM 500MG/50 ML (PMX) 50 ML IVPB ×2 (09:38→22:30)
[2019-06-14] MEDS: DICLOFENAC SODIUM 1% GEL 100 GM TUBE TP ×4 (09:39→22:30)
[2019-06-14 10:52] LABS: INR 0.93; PROTIME 12.6 Sec (11.9-14.9)
[2019-06-14 12:01] LABS: PROCALCITONIN 1.69 ng/mL (0.00-0.10)
[2019-06-14] MEDS ORDERED: GELATIN SIZE 100 SPONGE (14:06)
[2019-06-14] MEDS ORDERED: THROMBIN 5000 UNIT (RECOTHROM) VIAL (14:06)
[2019-06-14] MEDS ORDERED: PROPOFOL 20 ML (14:19)
[2019-06-14] MEDS ORDERED: LIDOCAINE 2% (SDV) 5 ML INJ (14:22)
[2019-06-14 14:57] LABS: IMMEDIATE SPIN CROSSMATCH 1 2
[2019-06-14] MEDS: LIDOCAINE 0.5% (SDV) 50 ML INJ (15:25)
[2019-06-14] MEDS: POLYMYXIN/BACITRACIN 1L IRRIG (15:25)
[2019-06-14] MEDS: BUPIVACAINE 0.5%/EPI (SDV) 30 ML INJ (15:25)
[2019-06-14] MEDS ORDERED: ROCURONIUM 50 MG INJ ×2 (18:32→18:33)
[2019-06-14] MEDS ORDERED: DEXAMETHASONE 4 MG/ML 5 ML INJ (18:33)
[2019-06-14] MEDS ORDERED: ONDANSETRON 4 MG INJ (18:34)
[2019-06-14] MEDS ORDERED: SUGAMMADEX SODIUM 200 MG/2 ML VIAL IV (18:35)
[2019-06-14] MEDS ORDERED: DIPHENHYDRAMINE 50 MG INJ IV (19:00)
[2019-06-14] MEDS ORDERED: MIDAZOLAM 1 MG/ML 2 ML INJ IV (19:00)
[2019-06-14] MEDS ORDERED: ONDANSETRON 4 MG INJ IV (19:00)
[2019-06-14] MEDS ORDERED: ALBUTEROL 0.083% (NEB) 2.5 MG/3 ML AMP HHN (19:00)
[2019-06-14] MEDS ORDERED: LORAZEPAM 2 MG INJ IV (19:00)
[2019-06-14] MEDS ORDERED: EPHEDrine 25 MG/5 ML SYG IV (19:00)
[2019-06-14] MEDS ORDERED: LABETALOL HCL 20MG INJ IV (19:00)
[2019-06-14] MEDS ORDERED: HYDROmorphONE 1 MG/5 ML IV SYRINGE IV ×3 (19:00)
[2019-06-14] MEDS ORDERED: METOCLOPRAMIDE 10 MG INJ IV (19:00)
[2019-06-14] MEDS ORDERED: HYDROCODONE/APAP (5/325) TAB PO (19:00)
[2019-06-14] MEDS ORDERED: MEPERIDINE 25 MG INJ IV (19:00)
[2019-06-14] MEDS: hydrALAzine 20 MG INJ IV (19:51)
[2019-06-15] MEDS: HYDROCODONE/APAP (7.5/325) TAB PO (00:51)
[2019-06-15] MEDS: LIDOCAINE 1% (MDV) 20 ML INJ INJ (00:55)
[2019-06-15] MEDS: ALBUMIN HUMAN 25% 100 ML IV (02:07)
[2019-06-15] MEDS: PANTOPRAZOLE (EC) 40 MG TAB PO (05:10)
[2019-06-15] MEDS: MEROPENEM 500MG/50 ML (PMX) 50 ML IVPB ×2 (05:11→20:52)
[2019-06-15 05:36] LABS: ADD MAN DIFF? NO
[2019-06-15 05:45] LABS: BASOPHIL # 0.1 10^3/ul (0.0-0.1); BASOPHILS % 0.7 % (0.0-2.0); EOSINOPHILS % 0.3 % (0.0-7.0); HEMATOCRIT 28.7 % (42.0-52.0); HEMOGLOBIN 8.8 g/dl (14.0-18.0); LYMPHOCYTES # 0.6 10^3/ul (0.8-2.9); LYMPHOCYTES % 9.2 % (15.0-51.0); MEAN CORPUSCULAR HEMOGLOBIN 26.7 pg (29.0-33.0); MEAN CORPUSCULAR HGB CONC 30.7 g/dl (32.0-37.0); MEAN CORPUSCULAR VOLUME 87.2 fl (82.0-101.0); MEAN PLATELET VOLUME 9.5 fl (7.4-10.4); MONOCYTE # 0.3 10^3/ul (0.3-0.9); MONOCYTES % 3.7 % (0.0-11.0); NEUTROPHILS % 85.7 % (39.0-77.0); PLATELET COUNT 288 10^3/UL (140-415); RED BLOOD COUNT 3.29 10^6/ul (4.70-6.10); RED CELL DISTRIBUTION WIDTH 15.5 % (11.5-14.5)
[2019-06-15 06:03] LABS: ANION GAP 15 (5-13); BLOOD UREA NITROGEN 22 mg/dl (7-20); CALCIUM 9.2 mg/dl (8.4-10.2); CARBON DIOXIDE 29 mmol/L (21-31); CHLORIDE 101 mmol/L (97-110); CREATININE 4.45 mg/dl (0.61-1.24); Estimated GFR 13 mL/min (>60); GLUCOSE 81 mg/dl (70-220); POTASSIUM 4.2 mmol/L (3.5-5.1); SODIUM 145 mmol/L (135-144)
[2019-06-15] MEDS: morphine 4 MG/ML VIAL IV ×2 (06:03→11:53)
[2019-06-15] MEDS: DICLOFENAC SODIUM 1% GEL 100 GM TUBE TP ×4 (09:00→21:00)
[2019-06-15] MEDS: CELECOXIB 100 MG CAP PO ×2 (09:16→20:51)
[2019-06-15] MEDS: DOCUSATE SODIUM 100 MG CAP PO ×2 (09:17→21:00)
[2019-06-15] MEDS: POLYETHYLENE GLYCOL 17 GM PACKET PO (09:18)
[2019-06-15] MEDS: SEVELAMER CARBONATE 800 MG TABLET PO ×3 (09:18→18:00)
[2019-06-15] MEDS: PREGABALIN 75 MG CAP PO ×2 (09:19→20:51)
[2019-06-15] MEDS: traMADol 50 MG TAB PO (09:19)
[2019-06-15] MEDS: RIFAMPIN 300 MG CAP PO (09:19)
[2019-06-15] MEDS: AMLODIPINE 5 MG TAB PO ×2 (09:23→20:53)
[2019-06-15] MEDS: LOSARTAN 25 MG TAB PO ×2 (09:24→20:53)
[2019-06-15] MEDS: HYDROmorphONE 2 MG/ML SYG IV (13:44)
[2019-06-15] MEDS ORDERED: NALOXONE (0.4 MG/ML) INJ IV (15:30)
[2019-06-15] MEDS: IBUPROFEN 800 MG TAB PO (16:59)
[2019-06-15] MEDS: HYDROmorphONE 0.2 MG/ML PCA IV (17:06)
[2019-06-15] MEDS: HYDROCODONE/APAP (5/325) TAB PO ×2 (18:38→22:39)
[2019-06-15] MEDS: CYCLOBENZAPRINE HCL 5 MG TABLET PO (21:58)
[2019-06-16] MEDS: HYDROCODONE/APAP (5/325) TAB PO ×7 (02:42→20:38)
[2019-06-16 05:28] LABS: ADD MAN DIFF? NO
[2019-06-16 05:33] LABS: BASOPHIL # 0.1 10^3/ul (0.0-0.1); BASOPHILS % 1.1 % (0.0-2.0); EOSINOPHILS # 0.6 10^3/ul (0.0-0.5); HEMATOCRIT 27.9 % (42.0-52.0); HEMOGLOBIN 8.5 g/dl (14.0-18.0); LYMPHOCYTES # 1.4 10^3/ul (0.8-2.9); LYMPHOCYTES % 21.6 % (15.0-51.0); MEAN CORPUSCULAR HEMOGLOBIN 26.9 pg (29.0-33.0); MEAN CORPUSCULAR HGB CONC 30.5 g/dl (32.0-37.0); MEAN CORPUSCULAR VOLUME 88.3 fl (82.0-101.0); MEAN PLATELET VOLUME 9.1 fl (7.4-10.4); MONOCYTE # 1.2 10^3/ul (0.3-0.9); MONOCYTES % 17.7 % (0.0-11.0); NEUTROPHIL # 3.3 10^3/ul (1.6-7.5); NEUTROPHILS % 50.1 % (39.0-77.0); PLATELET COUNT 280 10^3/UL (140-415); RED BLOOD COUNT 3.16 10^6/ul (4.70-6.10); RED CELL DISTRIBUTION WIDTH 15.9 % (11.5-14.5)
[2019-06-16 05:33] LABS: WHITE BLOOD COUNT 6.5 10^3/ul (4.8-10.8)
[2019-06-16 06:31] LABS: ANION GAP 10 (5-13); BLOOD UREA NITROGEN 40 mg/dl (7-20); C-REACTIVE PROTEIN 8.8 mg/dl (0.0-0.9); CALCIUM 8.9 mg/dl (8.4-10.2); CARBON DIOXIDE 30 mmol/L (21-31); CHLORIDE 100 mmol/L (97-110); CREATININE 6.71 mg/dl (0.61-1.24); Estimated GFR 8 mL/min (>60); GLUCOSE 101 mg/dl (70-220); POTASSIUM 4.7 mmol/L (3.5-5.1); SODIUM 140 mmol/L (135-144)
[2019-06-16 06:39] LABS: VANCOMYCIN,RANDOM 16.3 ug/ml
[2019-06-16] MEDS: PANTOPRAZOLE (EC) 40 MG TAB PO (06:48)
[2019-06-16 08:42] LABS: ERYTHROCYTE SEDIMENTATION RATE 78 mm/Hr (0-20)
[2019-06-16] MEDS: MEROPENEM 500MG/50 ML (PMX) 50 ML IVPB ×2 (09:17→23:27)
[2019-06-16] MEDS: POLYETHYLENE GLYCOL 17 GM PACKET PO (09:18)
[2019-06-16] MEDS: RIFAMPIN 300 MG CAP PO (09:19)
[2019-06-16] MEDS: PREGABALIN 75 MG CAP PO ×2 (09:19→20:38)
[2019-06-16] MEDS: CELECOXIB 100 MG CAP PO ×2 (09:20→20:38)
[2019-06-16] MEDS: DOCUSATE SODIUM 100 MG CAP PO ×2 (09:20→20:37)
[2019-06-16] MEDS: LOSARTAN 25 MG TAB PO ×2 (09:20→20:37)
[2019-06-16] MEDS: AMLODIPINE 5 MG TAB PO ×2 (09:20→20:38)
[2019-06-16] MEDS: CYCLOBENZAPRINE HCL 5 MG TABLET PO ×3 (09:20→20:38)
[2019-06-16] MEDS: DICLOFENAC SODIUM 1% GEL 100 GM TUBE TP ×4 (09:21→20:44)
[2019-06-16] MEDS: SEVELAMER CARBONATE 800 MG TABLET PO ×3 (09:25→19:17)
[2019-06-16] MEDS ORDERED: HYDROCODONE/APAP (5/325) TAB PO (11:00)
[2019-06-16] MEDS: LIDOCAINE 1% (MDV) 20 ML INJ INJ (16:43)
[2019-06-16] MEDS: VANCOMYCIN 750 MG (PMX) 250 ML IVPB (21:24)
[2019-06-17] MEDS: HYDROCODONE/APAP (5/325) TAB PO ×7 (01:32→23:05)
[2019-06-17] MEDS: PANTOPRAZOLE (EC) 40 MG TAB PO (06:03)
[2019-06-17] MEDS: CELECOXIB 100 MG CAP PO ×2 (08:31→20:41)
[2019-06-17] MEDS: MEROPENEM 500MG/50 ML (PMX) 50 ML IVPB ×2 (08:31→20:39)
[2019-06-17] MEDS: PREGABALIN 75 MG CAP PO ×2 (08:32→20:40)
[2019-06-17] MEDS: AMLODIPINE 5 MG TAB PO ×2 (08:32→20:41)
[2019-06-17] MEDS: CYCLOBENZAPRINE HCL 5 MG TABLET PO ×3 (08:32→20:40)
[2019-06-17] MEDS: RIFAMPIN 300 MG CAP PO (08:32)
[2019-06-17] MEDS: DOCUSATE SODIUM 100 MG CAP PO ×2 (08:32→20:40)
[2019-06-17] MEDS: LOSARTAN 25 MG TAB PO ×2 (08:32→20:40)
[2019-06-17] MEDS: DICLOFENAC SODIUM 1% GEL 100 GM TUBE TP ×4 (08:33→20:42)
[2019-06-17] MEDS: POLYETHYLENE GLYCOL 17 GM PACKET PO (08:33)
[2019-06-17] MEDS: SEVELAMER CARBONATE 800 MG TABLET PO ×3 (12:00→17:38)
[2019-06-17] MEDS: SOD CHLORIDE 0.9% 250 ML IV* ×2 (13:10)
[2019-06-17] MEDS: morphine 2 MG INJ IV (13:38)
[2019-06-18] MEDS: HYDROCODONE/APAP (5/325) TAB PO ×2 (03:50→08:50)
[2019-06-18] MEDS: PANTOPRAZOLE (EC) 40 MG TAB PO (05:43)
[2019-06-18 05:58] LABS: ADD MAN DIFF? NO
[2019-06-18 06:06] LABS: WHITE BLOOD COUNT 5.1 10^3/ul (4.8-10.8)
[2019-06-18 06:06] LABS: BASOPHIL # 0.1 10^3/ul (0.0-0.1); BASOPHILS % 1.2 % (0.0-2.0); EOSINOPHILS # 0.6 10^3/ul (0.0-0.5); HEMATOCRIT 30.9 % (42.0-52.0); HEMOGLOBIN 9.5 g/dl (14.0-18.0); LYMPHOCYTES # 1.4 10^3/ul (0.8-2.9); LYMPHOCYTES % 26.6 % (15.0-51.0); MEAN CORPUSCULAR HEMOGLOBIN 26.8 pg (29.0-33.0); MEAN CORPUSCULAR HGB CONC 30.7 g/dl (32.0-37.0); MEAN PLATELET VOLUME 9.6 fl (7.4-10.4); MONOCYTE # 0.8 10^3/ul (0.3-0.9); MONOCYTES % 15.6 % (0.0-11.0); NEUTROPHIL # 2.3 10^3/ul (1.6-7.5); NEUTROPHILS % 44.8 % (39.0-77.0); PLATELET COUNT 273 10^3/UL (140-415); RED BLOOD COUNT 3.55 10^6/ul (4.70-6.10); RED CELL DISTRIBUTION WIDTH 15.9 % (11.5-14.5)
[2019-06-18 06:55] LABS: ANION GAP 9 (5-13); BLOOD UREA NITROGEN 38 mg/dl (7-20); C-REACTIVE PROTEIN 8.3 mg/dl (0.0-0.9); CALCIUM 8.8 mg/dl (8.4-10.2); CARBON DIOXIDE 28 mmol/L (21-31); CHLORIDE 102 mmol/L (97-110); Estimated GFR 9 mL/min (>60); GLUCOSE 93 mg/dl (70-220); POTASSIUM 4.2 mmol/L (3.5-5.1); SODIUM 139 mmol/L (135-144)
[2019-06-18] MEDS: SEVELAMER CARBONATE 800 MG TABLET PO ×3 (08:50→17:53)
[2019-06-18] MEDS: RIFAMPIN 300 MG CAP PO (08:51)
[2019-06-18] MEDS: PREGABALIN 75 MG CAP PO ×2 (08:51→20:09)
[2019-06-18] MEDS: MEROPENEM 500MG/50 ML (PMX) 50 ML IVPB (08:51)
[2019-06-18] MEDS: CYCLOBENZAPRINE HCL 5 MG TABLET PO ×3 (08:52→20:10)
[2019-06-18] MEDS: DOCUSATE SODIUM 100 MG CAP PO ×2 (08:52→20:09)
[2019-06-18] MEDS: CELECOXIB 100 MG CAP PO ×2 (08:52→20:09)
[2019-06-18] MEDS: LOSARTAN 25 MG TAB PO ×2 (08:53→20:08)
[2019-06-18 08:54] LABS: ERYTHROCYTE SEDIMENTATION RATE 60 mm/Hr (0-20)
[2019-06-18] MEDS: AMLODIPINE 5 MG TAB PO ×2 (08:54→20:08)
[2019-06-18] MEDS: POLYETHYLENE GLYCOL 17 GM PACKET PO (08:55)
[2019-06-18] MEDS: DICLOFENAC SODIUM 1% GEL 100 GM TUBE TP ×4 (09:00→20:10)
[2019-06-18] MEDS: oxyCODONE (CR) 10 MG TAB [oxyCONTIN] PO ×2 (11:45→20:10)
[2019-06-18] MEDS: morphine 2 MG INJ IV (14:06)
[2019-06-18] MEDS: LIDOCAINE 1% (MPF) 5 ML VIAL SC (16:00)
[2019-06-18] MEDS: ERTAPENEM SODIUM 0.5 GM in SOD CHLORIDE 0.9% 100 ML IVPB (20:04)
[2019-06-19] MEDS: hydrALAzine 20 MG INJ IV ×2 (01:17→14:48)
[2019-06-19] MEDS: PANTOPRAZOLE (EC) 40 MG TAB PO (05:24)
[2019-06-19] MEDS: CELECOXIB 100 MG CAP PO ×2 (08:33→23:45)
[2019-06-19] MEDS: CYCLOBENZAPRINE HCL 5 MG TABLET PO ×3 (08:33→23:45)
[2019-06-19] MEDS: RIFAMPIN 300 MG CAP PO (08:33)
[2019-06-19] MEDS: POLYETHYLENE GLYCOL 17 GM PACKET PO (08:33)
[2019-06-19] MEDS: DOCUSATE SODIUM 100 MG CAP PO ×2 (08:33→23:45)
[2019-06-19] MEDS: SEVELAMER CARBONATE 800 MG TABLET PO ×3 (08:33→18:18)
[2019-06-19] MEDS: AMLODIPINE 5 MG TAB PO ×2 (08:34→23:49)
[2019-06-19] MEDS: oxyCODONE (CR) 10 MG TAB [oxyCONTIN] PO ×2 (08:34→23:45)
[2019-06-19] MEDS: PREGABALIN 75 MG CAP PO ×2 (08:34→23:46)
[2019-06-19] MEDS: LOSARTAN 25 MG TAB PO ×2 (08:35→23:49)
[2019-06-19] MEDS: DICLOFENAC SODIUM 1% GEL 100 GM TUBE TP ×3 (08:35→17:00)
[2019-06-19] MEDS ORDERED: OXYCODONE/ACETAMINOPHEN (5/325) TAB PO (14:30)
[2019-06-19] MEDS: VANCOMYCIN 750 MG (PMX) 250 ML IVPB (18:18)
[2019-06-19] MEDS: LIDOCAINE 1% (MDV) 20 ML INJ INJ (19:54)
[2019-06-20] MEDS: DICLOFENAC SODIUM 1% GEL 100 GM TUBE TP ×5 (00:28→21:09)
[2019-06-20] MEDS: ERTAPENEM SODIUM 0.5 GM in SOD CHLORIDE 0.9% 100 ML IVPB ×2 (00:28→21:17)
[2019-06-20] MEDS: morphine 2 MG INJ IV (03:18)
[2019-06-20] MEDS: PANTOPRAZOLE (EC) 40 MG TAB PO (06:28)
[2019-06-20] MEDS: OXYCODONE/ACETAMINOPHEN (5/325) TAB PO (06:50)
[2019-06-20] MEDS: SEVELAMER CARBONATE 800 MG TABLET PO ×3 (08:30→17:50)
[2019-06-20] MEDS: CYCLOBENZAPRINE HCL 5 MG TABLET PO ×3 (08:31→21:10)
[2019-06-20] MEDS: DOCUSATE SODIUM 100 MG CAP PO ×2 (08:31→21:10)
[2019-06-20] MEDS: CELECOXIB 100 MG CAP PO ×2 (08:31→21:12)
[2019-06-20] MEDS: LOSARTAN 25 MG TAB PO ×2 (08:32→21:11)
[2019-06-20] MEDS: AMLODIPINE 5 MG TAB PO ×2 (08:32→21:12)
[2019-06-20] MEDS: PREGABALIN 75 MG CAP PO ×2 (08:32→21:10)
[2019-06-20] MEDS: oxyCODONE (CR) 10 MG TAB [oxyCONTIN] PO ×2 (08:32→21:11)
[2019-06-20] MEDS: POLYETHYLENE GLYCOL 17 GM PACKET PO (08:32)
[2019-06-20] MEDS: hydrALAzine 20 MG INJ IV (14:17)
[2019-06-21] MEDS: PANTOPRAZOLE (EC) 40 MG TAB PO (05:38)
[2019-06-21] MEDS: SEVELAMER CARBONATE 800 MG TABLET PO ×4 (08:00→17:15)
[2019-06-21] MEDS: POLYETHYLENE GLYCOL 17 GM PACKET PO ×2 (09:00→09:41)
[2019-06-21] MEDS: AMLODIPINE 5 MG TAB PO ×2 (09:00→20:08)
[2019-06-21] MEDS: LOSARTAN 25 MG TAB PO ×2 (09:00→20:07)
[2019-06-21] MEDS: PREGABALIN 75 MG CAP PO ×2 (09:39→20:08)
[2019-06-21] MEDS: CYCLOBENZAPRINE HCL 5 MG TABLET PO ×3 (09:39→20:08)
[2019-06-21] MEDS: CELECOXIB 100 MG CAP PO ×2 (09:39→20:06)
[2019-06-21] MEDS: oxyCODONE (CR) 10 MG TAB [oxyCONTIN] PO ×2 (09:40→20:08)
[2019-06-21] MEDS: DICLOFENAC SODIUM 1% GEL 100 GM TUBE TP ×4 (09:41→22:10)
[2019-06-21] MEDS: DOCUSATE SODIUM 100 MG CAP PO ×2 (09:41→20:07)
[2019-06-21] MEDS: LIDOCAINE 1% (MDV) 20 ML INJ INJ (11:26)
[2019-06-21] MEDS: ASPIRIN (EC) 325 MG TAB PO (15:52)
[2019-06-21] MEDS: hydrALAzine 20 MG INJ IV (17:15)
[2019-06-21] MEDS: ERTAPENEM SODIUM 0.5 GM in SOD CHLORIDE 0.9% 100 ML IVPB (22:10)
[2019-06-22] MEDS: PANTOPRAZOLE (EC) 40 MG TAB PO (05:36)
[2019-06-22] MEDS: hydrALAzine 20 MG INJ IV (05:46)
[2019-06-22] MEDS: SEVELAMER CARBONATE 800 MG TABLET PO ×3 (08:00→17:08)
[2019-06-22] MEDS: AMLODIPINE 5 MG TAB PO ×2 (08:43→20:20)
[2019-06-22] MEDS: LOSARTAN 25 MG TAB PO ×2 (08:43→20:22)
[2019-06-22] MEDS: DICLOFENAC SODIUM 1% GEL 100 GM TUBE TP ×4 (08:44→21:23)
[2019-06-22] MEDS: POLYETHYLENE GLYCOL 17 GM PACKET PO (08:44)
[2019-06-22] MEDS: oxyCODONE (CR) 10 MG TAB [oxyCONTIN] PO (08:44)
[2019-06-22] MEDS: PREGABALIN 75 MG CAP PO ×2 (08:45→20:21)
[2019-06-22] MEDS: DOCUSATE SODIUM 100 MG CAP PO ×2 (08:51→20:21)
[2019-06-22] MEDS: CYCLOBENZAPRINE HCL 5 MG TABLET PO (08:51)
[2019-06-22] MEDS: ASPIRIN (EC) 325 MG TAB PO (08:51)
[2019-06-22] MEDS: CELECOXIB 100 MG CAP PO ×2 (08:51→20:20)
[2019-06-22] MEDS: HALOPERIDOL 5 MG INJ IM (14:29)
[2019-06-22 18:16] LABS: VANCOMYCIN,TROUGH 15.5 ug/ml (10.0-20.0)
[2019-06-22] MEDS: VANCOMYCIN 750 MG (PMX) 250 ML IVPB (18:32)
[2019-06-22] MEDS: ERTAPENEM SODIUM 0.5 GM in SOD CHLORIDE 0.9% 100 ML IVPB (21:23)
[2019-06-22] MEDS: HEPARIN 5,000 UNIT/1 ML VIAL SC (21:38)
[2019-06-23] MEDS: PANTOPRAZOLE (EC) 40 MG TAB PO (05:55)
[2019-06-23] MEDS: SEVELAMER CARBONATE 800 MG TABLET PO ×3 (08:12→18:17)
[2019-06-23] MEDS: PREGABALIN 75 MG CAP PO ×2 (08:12→21:38)
[2019-06-23] MEDS: DOCUSATE SODIUM 100 MG CAP PO ×2 (08:12→21:29)
[2019-06-23] MEDS: CELECOXIB 100 MG CAP PO ×2 (08:12→21:29)
[2019-06-23] MEDS: POLYETHYLENE GLYCOL 17 GM PACKET PO (08:13)
[2019-06-23] MEDS: HEPARIN 5,000 UNIT/1 ML VIAL SC ×2 (08:23→21:32)
[2019-06-23] MEDS: DICLOFENAC SODIUM 1% GEL 100 GM TUBE TP ×4 (08:28→21:39)
[2019-06-23] MEDS: ASPIRIN (EC) 81 MG TAB PO (09:00)
[2019-06-23] MEDS: LOSARTAN 25 MG TAB PO ×3 (09:00→21:30)
[2019-06-23] MEDS: DOXAZOSIN 1 MG TAB PO ×2 (10:00)
[2019-06-23] MEDS: CEFEPIME 1GM/50 ML (PMX) 50 ML IVPB (11:13)
[2019-06-23] MEDS: hydrALAzine 20 MG INJ IV (11:21)
[2019-06-23] MEDS: LIDOCAINE 1% (MDV) 20 ML INJ INJ (14:36)
[2019-06-23] MEDS: DOXAZOSIN 2 MG TAB PO (21:29)
[2019-06-23] MEDS: LORAZEPAM 2 MG INJ IV ×2 (23:17→23:25)
[2019-06-24] MEDS: PANTOPRAZOLE (EC) 40 MG TAB PO (06:05)
[2019-06-24] MEDS: SEVELAMER CARBONATE 800 MG TABLET PO ×4 (08:00→17:09)
[2019-06-24] MEDS: CEFEPIME 1GM/50 ML (PMX) 50 ML IVPB (08:58)
[2019-06-24] MEDS: DOCUSATE SODIUM 100 MG CAP PO ×3 (08:59→21:28)
[2019-06-24] MEDS: HEPARIN 5,000 UNIT/1 ML VIAL SC ×2 (08:59→21:32)
[2019-06-24] MEDS: CELECOXIB 100 MG CAP PO ×3 (09:00→21:28)
[2019-06-24] MEDS: AMLODIPINE 5 MG TAB PO ×2 (09:00→09:01)
[2019-06-24] MEDS: PREGABALIN 75 MG CAP PO ×2 (09:00→21:34)
[2019-06-24] MEDS: LOSARTAN 25 MG TAB PO ×3 (09:00→21:29)
[2019-06-24] MEDS: ASPIRIN (EC) 81 MG TAB PO ×2 (09:00→09:01)
[2019-06-24] MEDS: POLYETHYLENE GLYCOL 17 GM PACKET PO (09:00)
[2019-06-24] MEDS: DICLOFENAC SODIUM 1% GEL 100 GM TUBE TP ×4 (09:03→21:34)
[2019-06-24 11:48] LABS: ADD MAN DIFF? NO
[2019-06-24 11:51] LABS: WHITE BLOOD COUNT 5.5 10^3/ul (4.8-10.8)
[2019-06-24 11:51] LABS: BASOPHIL # 0.1 10^3/ul (0.0-0.1); BASOPHILS % 1.1 % (0.0-2.0); EOSINOPHILS # 0.6 10^3/ul (0.0-0.5); EOSINOPHILS % 10.5 % (0.0-7.0); HEMATOCRIT 25.9 % (42.0-52.0); HEMOGLOBIN 7.9 g/dl (14.0-18.0); LYMPHOCYTES # 1.4 10^3/ul (0.8-2.9); LYMPHOCYTES % 25.9 % (15.0-51.0); MEAN CORPUSCULAR HEMOGLOBIN 26.9 pg (29.0-33.0); MEAN CORPUSCULAR HGB CONC 30.5 g/dl (32.0-37.0); MEAN CORPUSCULAR VOLUME 88.1 fl (82.0-101.0); MEAN PLATELET VOLUME 10.4 fl (7.4-10.4); MONOCYTE # 0.7 10^3/ul (0.3-0.9); MONOCYTES % 13.6 % (0.0-11.0); NEUTROPHIL # 2.7 10^3/ul (1.6-7.5); NEUTROPHILS % 48.5 % (39.0-77.0); PLATELET COUNT 243 10^3/UL (140-415); RED BLOOD COUNT 2.94 10^6/ul (4.70-6.10); RED CELL DISTRIBUTION WIDTH 16.8 % (11.5-14.5)
[2019-06-24] MEDS: hydrALAzine 20 MG INJ IV (16:04)
[2019-06-24] MEDS: DOXAZOSIN 2 MG TAB PO (21:30)
[2019-06-25] MEDS: PANTOPRAZOLE (EC) 40 MG TAB PO (05:40)
[2019-06-25] MEDS: CEFEPIME 1GM/50 ML (PMX) 50 ML IVPB (09:19)
[2019-06-25] MEDS: SEVELAMER CARBONATE 800 MG TABLET PO ×3 (09:19→17:09)
[2019-06-25] MEDS: DOCUSATE SODIUM 100 MG CAP PO ×2 (09:20→21:08)
[2019-06-25] MEDS: LOSARTAN 25 MG TAB PO ×2 (09:20→21:08)
[2019-06-25] MEDS: ASPIRIN (EC) 81 MG TAB PO (09:20)
[2019-06-25] MEDS: AMLODIPINE 2.5 MG TAB PO ×2 (09:21→21:14)
[2019-06-25] MEDS: CELECOXIB 100 MG CAP PO ×2 (09:21→21:07)
[2019-06-25] MEDS: POLYETHYLENE GLYCOL 17 GM PACKET PO (09:21)
[2019-06-25] MEDS: DICLOFENAC SODIUM 1% GEL 100 GM TUBE TP ×4 (09:21→21:09)
[2019-06-25 10:19] LABS: ADD MAN DIFF? NO
[2019-06-25 10:21] LABS: WHITE BLOOD COUNT 6.5 10^3/ul (4.8-10.8)
[2019-06-25 10:21] LABS: BASOPHIL # 0.1 10^3/ul (0.0-0.1); BASOPHILS % 0.8 % (0.0-2.0); EOSINOPHILS # 0.5 10^3/ul (0.0-0.5); EOSINOPHILS % 7.1 % (0.0-7.0); HEMATOCRIT 24.1 % (42.0-52.0); HEMOGLOBIN 7.5 g/dl (14.0-18.0); LYMPHOCYTES # 1.1 10^3/ul (0.8-2.9); LYMPHOCYTES % 17.2 % (15.0-51.0); MEAN CORPUSCULAR HEMOGLOBIN 27.1 pg (29.0-33.0); MEAN CORPUSCULAR HGB CONC 31.1 g/dl (32.0-37.0); MEAN PLATELET VOLUME 9.7 fl (7.4-10.4); MONOCYTE # 0.8 10^3/ul (0.3-0.9); MONOCYTES % 11.7 % (0.0-11.0); NEUTROPHIL # 4.1 10^3/ul (1.6-7.5); NEUTROPHILS % 62.9 % (39.0-77.0); PLATELET COUNT 205 10^3/UL (140-415); RED BLOOD COUNT 2.77 10^6/ul (4.70-6.10); RED CELL DISTRIBUTION WIDTH 16.4 % (11.5-14.5)
[2019-06-25 10:40] LABS: ANION GAP 9 (5-13); BLOOD UREA NITROGEN 45 mg/dl (7-20); C-REACTIVE PROTEIN 7.6 mg/dl (0.0-0.9); CALCIUM 8.8 mg/dl (8.4-10.2); CARBON DIOXIDE 26 mmol/L (21-31); CHLORIDE 105 mmol/L (97-110); Estimated GFR 7 mL/min (>60); GLUCOSE 113 mg/dl (70-220); POTASSIUM 4.4 mmol/L (3.5-5.1); SODIUM 140 mmol/L (135-144)
[2019-06-25] MEDS: PREGABALIN 75 MG CAP PO ×2 (10:49→21:14)
[2019-06-25] MEDS: HYDROCODONE/APAP (5/325) TAB PO ×2 (10:49→19:00)
[2019-06-25] MEDS: HEPARIN 5,000 UNIT/1 ML VIAL SC ×2 (10:54→21:11)
[2019-06-25 11:28] LABS: ERYTHROCYTE SEDIMENTATION RATE 65 mm/Hr (0-20)
[2019-06-25 12:19] LABS: PROCALCITONIN 0.44 ng/mL (0.00-0.10)
[2019-06-25] MEDS: VANCOMYCIN 750 MG (PMX) 250 ML IVPB (17:09)
[2019-06-25] MEDS: DOXAZOSIN 2 MG TAB PO (21:07)
[2019-06-26] MEDS: HYDROCODONE/APAP (5/325) TAB PO (04:17)
[2019-06-26] MEDS: PANTOPRAZOLE (EC) 40 MG TAB PO (06:37)
[2019-06-26] MEDS: DICLOFENAC SODIUM 1% GEL 100 GM TUBE TP ×4 (09:31→23:12)
[2019-06-26] MEDS: ASPIRIN (EC) 81 MG TAB PO (09:32)
[2019-06-26] MEDS: DOCUSATE SODIUM 100 MG CAP PO ×2 (09:32→20:31)
[2019-06-26] MEDS: AMLODIPINE 2.5 MG TAB PO (09:32)
[2019-06-26] MEDS: CEFEPIME 1GM/50 ML (PMX) 50 ML IVPB (09:32)
[2019-06-26] MEDS: CELECOXIB 100 MG CAP PO ×2 (09:32→20:31)
[2019-06-26] MEDS: LOSARTAN 25 MG TAB PO ×2 (09:33→20:37)
[2019-06-26] MEDS: SEVELAMER CARBONATE 800 MG TABLET PO ×3 (09:34→17:54)
[2019-06-26] MEDS: POLYETHYLENE GLYCOL 17 GM PACKET PO (09:34)
[2019-06-26] MEDS: PREGABALIN 75 MG CAP PO ×2 (09:37→20:45)
[2019-06-26] MEDS: HEPARIN 5,000 UNIT/1 ML VIAL SC ×2 (09:56→20:57)
[2019-06-26] MEDS: FLUCONAZOLE 100 MG TAB PO (17:54)
[2019-06-26] MEDS: DAPTOMYCIN 230 MG in SOD CHLORIDE 0.9% 100 ML IVPB (18:13)
[2019-06-26] MEDS: DOXAZOSIN 2 MG TAB PO (20:31)
[2019-06-26] MEDS: AMLODIPINE 5 MG TAB PO (20:31)
[2019-06-27] MEDS: HALOPERIDOL 5 MG INJ IM (00:12)
[2019-06-27] MEDS: hydrALAzine 20 MG INJ IV (02:47)
[2019-06-27] MEDS: PANTOPRAZOLE (EC) 40 MG TAB PO (05:25)
[2019-06-27] MEDS: PREGABALIN 75 MG CAP PO ×2 (09:30→22:13)
[2019-06-27] MEDS: SEVELAMER CARBONATE 800 MG TABLET PO ×3 (09:30→17:12)
[2019-06-27] MEDS: CEFEPIME 1GM/50 ML (PMX) 50 ML IVPB (09:30)
[2019-06-27] MEDS: FLUCONAZOLE 100 MG TAB PO (09:30)
[2019-06-27] MEDS: CELECOXIB 100 MG CAP PO ×2 (09:30→22:13)
[2019-06-27] MEDS: DOCUSATE SODIUM 100 MG CAP PO ×2 (09:30→22:13)
[2019-06-27] MEDS: LOSARTAN 25 MG TAB PO ×2 (09:31→22:14)
[2019-06-27] MEDS: AMLODIPINE 5 MG TAB PO (09:31)
[2019-06-27] MEDS: ASPIRIN (EC) 81 MG TAB PO (09:31)
[2019-06-27] MEDS: DICLOFENAC SODIUM 1% GEL 100 GM TUBE TP ×4 (09:59→22:15)
[2019-06-27] MEDS: HEPARIN 5,000 UNIT/1 ML VIAL SC ×2 (09:59→22:24)
[2019-06-27] MEDS: POVIDONE IODINE 10% 28.4 GM OINT TOP (10:00)
[2019-06-27] MEDS: POLYETHYLENE GLYCOL 17 GM PACKET PO (10:00)
[2019-06-27] MEDS: HYDROCODONE/APAP (5/325) TAB PO (13:22)
[2019-06-27] MEDS: QUETIAPINE 25 MG TAB PO (22:13)
[2019-06-27] MEDS: NIFEdipine (XL) 60 MG TAB PO (22:13)
[2019-06-27] MEDS: DOXAZOSIN 2 MG TAB PO (22:14)
[2019-06-28] MEDS: LORAZEPAM 2 MG INJ IV (02:34)
[2019-06-28] MEDS: PANTOPRAZOLE (EC) 40 MG TAB PO (05:38)
[2019-06-28 07:21] LABS: ADD MAN DIFF? NO
[2019-06-28 07:29] LABS: BASOPHIL # 0.1 10^3/ul (0.0-0.1); BASOPHILS % 0.7 % (0.0-2.0); EOSINOPHILS # 0.6 10^3/ul (0.0-0.5); EOSINOPHILS % 8.1 % (0.0-7.0); HEMOGLOBIN 7.1 g/dl (14.0-18.0); LYMPHOCYTES # 1.2 10^3/ul (0.8-2.9); LYMPHOCYTES % 15.9 % (15.0-51.0); MEAN CORPUSCULAR HEMOGLOBIN 26.7 pg (29.0-33.0); MEAN CORPUSCULAR HGB CONC 30.9 g/dl (32.0-37.0); MEAN CORPUSCULAR VOLUME 86.5 fl (82.0-101.0); MEAN PLATELET VOLUME 10.7 fl (7.4-10.4); MONOCYTE # 0.9 10^3/ul (0.3-0.9); NEUTROPHIL # 4.6 10^3/ul (1.6-7.5); PLATELET COUNT 199 10^3/UL (140-415); RED BLOOD COUNT 2.66 10^6/ul (4.70-6.10); RED CELL DISTRIBUTION WIDTH 16.2 % (11.5-14.5)
[2019-06-28 07:29] LABS: WHITE BLOOD COUNT 7.3 10^3/ul (4.8-10.8)
[2019-06-28 07:44] LABS: CREATINE KINASE 29 IU/L (23-200)
[2019-06-28 07:46] LABS: ANION GAP 8 (5-13); BLOOD UREA NITROGEN 45 mg/dl (7-20); CALCIUM 8.3 mg/dl (8.4-10.2); CARBON DIOXIDE 29 mmol/L (21-31); CHLORIDE 100 mmol/L (97-110); CREATININE 7.07 mg/dl (0.61-1.24); Estimated GFR 8 mL/min (>60); GLUCOSE 87 mg/dl (70-220); POTASSIUM 4.5 mmol/L (3.5-5.1); SODIUM 137 mmol/L (135-144)
[2019-06-28] MEDS: SOD CHLORIDE 0.9% 250 ML IV* (10:05)
[2019-06-28] MEDS: POLYETHYLENE GLYCOL 17 GM PACKET PO (10:28)
[2019-06-28] MEDS: CEFEPIME 1GM/50 ML (PMX) 50 ML IVPB (10:28)
[2019-06-28] MEDS: ASPIRIN (EC) 81 MG TAB PO (10:29)
[2019-06-28] MEDS: NIFEdipine (XL) 60 MG TAB PO ×2 (10:29→21:35)
[2019-06-28] MEDS: CELECOXIB 100 MG CAP PO ×2 (10:29→21:33)
[2019-06-28] MEDS: FLUCONAZOLE 100 MG TAB PO (10:29)
[2019-06-28] MEDS: DOCUSATE SODIUM 100 MG CAP PO ×2 (10:30→21:34)
[2019-06-28] MEDS: LOSARTAN 25 MG TAB PO ×2 (10:31→21:35)
[2019-06-28] MEDS: POVIDONE IODINE 10% 28.4 GM OINT TOP (10:31)
[2019-06-28] MEDS: DICLOFENAC SODIUM 1% GEL 100 GM TUBE TP ×4 (10:32→21:36)
[2019-06-28] MEDS: HEPARIN 5,000 UNIT/1 ML VIAL SC ×2 (10:36→21:46)
[2019-06-28] MEDS: PREGABALIN 75 MG CAP PO (10:46)
[2019-06-28] MEDS: SEVELAMER CARBONATE 800 MG TABLET PO ×3 (10:46→18:22)
[2019-06-28 14:36] LABS: IMMEDIATE SPIN CROSSMATCH 1 1
[2019-06-28 15:11] LABS: AMMONIA < 9 umol/l (9-30)
[2019-06-28] MEDS: DAPTOMYCIN 230 MG in SOD CHLORIDE 0.9% 100 ML IVPB (18:21)
[2019-06-28] MEDS: DOXAZOSIN 2 MG TAB PO (21:34)
[2019-06-28] MEDS: QUETIAPINE 25 MG TAB PO (21:35)
[2019-06-28] MEDS: HALOPERIDOL 5 MG INJ IM (22:33)
[2019-06-29] MEDS: PANTOPRAZOLE (EC) 40 MG TAB PO (05:50)
[2019-06-29 06:45] LABS: ADD MAN DIFF? NO
[2019-06-29 06:54] LABS: WHITE BLOOD COUNT 10.6 10^3/ul (4.8-10.8)
[2019-06-29 06:54] LABS: BASOPHIL # 0.1 10^3/ul (0.0-0.1); BASOPHILS % 0.5 % (0.0-2.0); EOSINOPHILS # 0.2 10^3/ul (0.0-0.5); EOSINOPHILS % 2.3 % (0.0-7.0); HEMATOCRIT 25.2 % (42.0-52.0); HEMOGLOBIN 8.2 g/dl (14.0-18.0); LYMPHOCYTES # 1.4 10^3/ul (0.8-2.9); LYMPHOCYTES % 12.8 % (15.0-51.0); MEAN CORPUSCULAR HEMOGLOBIN 27.8 pg (29.0-33.0); MEAN CORPUSCULAR HGB CONC 32.5 g/dl (32.0-37.0); MEAN CORPUSCULAR VOLUME 85.4 fl (82.0-101.0); MEAN PLATELET VOLUME 10.5 fl (7.4-10.4); MONOCYTE # 1.1 10^3/ul (0.3-0.9); MONOCYTES % 10.5 % (0.0-11.0); NEUTROPHIL # 7.8 10^3/ul (1.6-7.5); NEUTROPHILS % 73.4 % (39.0-77.0); PLATELET COUNT 192 10^3/UL (140-415); RED BLOOD COUNT 2.95 10^6/ul (4.70-6.10); RED CELL DISTRIBUTION WIDTH 15.8 % (11.5-14.5)
[2019-06-29 07:15] LABS: ANION GAP 11 (5-13); BLOOD UREA NITROGEN 31 mg/dl (7-20); CALCIUM 8.8 mg/dl (8.4-10.2); CARBON DIOXIDE 29 mmol/L (21-31); CHLORIDE 98 mmol/L (97-110); Estimated GFR 10 mL/min (>60); GLUCOSE 80 mg/dl (70-220); POTASSIUM 4.4 mmol/L (3.5-5.1); SODIUM 138 mmol/L (135-144)
[2019-06-29] MEDS: POVIDONE IODINE 10% 28.4 GM OINT TOP (09:00)
[2019-06-29] MEDS: DICLOFENAC SODIUM 1% GEL 100 GM TUBE TP ×4 (10:56→20:36)
[2019-06-29] MEDS: POLYETHYLENE GLYCOL 17 GM PACKET PO (10:56)
[2019-06-29] MEDS: CEFEPIME 1GM/50 ML (PMX) 50 ML IVPB (10:56)
[2019-06-29] MEDS: DOCUSATE SODIUM 100 MG CAP PO ×2 (10:57→20:34)
[2019-06-29] MEDS: ASPIRIN (EC) 81 MG TAB PO (10:57)
[2019-06-29] MEDS: CELECOXIB 100 MG CAP PO ×2 (10:58→20:47)
[2019-06-29] MEDS: FLUCONAZOLE 100 MG TAB PO (10:58)
[2019-06-29] MEDS: LOSARTAN 25 MG TAB PO ×2 (10:58→20:36)
[2019-06-29] MEDS: NIFEdipine (XL) 60 MG TAB PO ×2 (10:58→20:35)
[2019-06-29] MEDS: SEVELAMER CARBONATE 800 MG TABLET PO ×3 (10:59→19:10)
[2019-06-29] MEDS: HEPARIN 5,000 UNIT/1 ML VIAL SC ×2 (11:36→21:00)
[2019-06-29] MEDS: QUETIAPINE 25 MG TAB PO ×2 (13:46→20:35)
[2019-06-29] MEDS: DOXAZOSIN 2 MG TAB PO (20:36)
[2019-06-29] MEDS: HALOPERIDOL 5 MG INJ IM (20:47)
[2019-06-30] MEDS: PANTOPRAZOLE (EC) 40 MG TAB PO (05:55)
[2019-06-30 07:20] LABS: ANION GAP 11 (5-13); BLOOD UREA NITROGEN 44 mg/dl (7-20); CALCIUM 8.4 mg/dl (8.4-10.2); CARBON DIOXIDE 26 mmol/L (21-31); CHLORIDE 99 mmol/L (97-110); CREATININE 7.56 mg/dl (0.61-1.24); Estimated GFR 7 mL/min (>60); GLUCOSE 72 mg/dl (70-220); POTASSIUM 4.9 mmol/L (3.5-5.1); SODIUM 136 mmol/L (135-144)
[2019-06-30] MEDS: LOSARTAN 25 MG TAB PO ×2 (09:00→20:25)
[2019-06-30] MEDS: DOCUSATE SODIUM 100 MG CAP PO ×2 (09:05→20:24)
[2019-06-30] MEDS: POLYETHYLENE GLYCOL 17 GM PACKET PO (09:05)
[2019-06-30] MEDS: SEVELAMER CARBONATE 800 MG TABLET PO ×3 (09:05→17:19)
[2019-06-30] MEDS: CEFEPIME 1GM/50 ML (PMX) 50 ML IVPB (09:06)
[2019-06-30] MEDS: CELECOXIB 100 MG CAP PO ×2 (09:06→20:25)
[2019-06-30] MEDS: ASPIRIN (EC) 81 MG TAB PO (09:07)
[2019-06-30] MEDS: FLUCONAZOLE 100 MG TAB PO (09:07)
[2019-06-30] MEDS: NIFEdipine (XL) 60 MG TAB PO ×2 (09:08→20:24)
[2019-06-30] MEDS: DICLOFENAC SODIUM 1% GEL 100 GM TUBE TP ×4 (09:09→21:15)
[2019-06-30] MEDS: HEPARIN 5,000 UNIT/1 ML VIAL SC ×2 (09:11→20:35)
[2019-06-30] MEDS: POVIDONE IODINE 10% 28.4 GM OINT TOP (09:16)
[2019-06-30] MEDS: HYDROCODONE/APAP (5/325) TAB PO (10:23)
[2019-06-30] MEDS ORDERED: LORAZEPAM 2 MG INJ IV ×2 (13:30→19:00)
[2019-06-30] MEDS: DAPTOMYCIN 230 MG in SOD CHLORIDE 0.9% 100 ML IVPB (13:41)
[2019-06-30] MEDS: ALBUMIN HUMAN 25% 100 ML IV (18:06)
[2019-06-30] MEDS: QUETIAPINE 25 MG TAB PO ×2 (18:08→20:26)
[2019-06-30] MEDS: DOXAZOSIN 2 MG TAB PO (20:24)
[2019-07-01] MEDS: QUETIAPINE 25 MG TAB PO ×2 (04:51→21:00)
[2019-07-01] MEDS: PANTOPRAZOLE (EC) 40 MG TAB PO (05:54)
[2019-07-01] MEDS: SEVELAMER CARBONATE 800 MG TABLET PO ×3 (08:06→17:46)
[2019-07-01] MEDS: CEFEPIME 1GM/50 ML (PMX) 50 ML IVPB (08:45)
[2019-07-01] MEDS: FLUCONAZOLE 100 MG TAB PO (08:48)
[2019-07-01] MEDS: POLYETHYLENE GLYCOL 17 GM PACKET PO (08:48)
[2019-07-01] MEDS: DOCUSATE SODIUM 100 MG CAP PO ×2 (08:48→21:00)
[2019-07-01] MEDS: CELECOXIB 100 MG CAP PO ×2 (08:48→21:00)
[2019-07-01] MEDS: ASPIRIN (EC) 81 MG TAB PO (08:49)
[2019-07-01] MEDS: HEPARIN 5,000 UNIT/1 ML VIAL SC ×2 (08:50→20:56)
[2019-07-01] MEDS: LOSARTAN 25 MG TAB PO ×2 (08:51→21:00)
[2019-07-01] MEDS: NIFEdipine (XL) 60 MG TAB PO ×2 (08:51→21:00)
[2019-07-01] MEDS: DICLOFENAC SODIUM 1% GEL 100 GM TUBE TP ×4 (08:53→20:53)
[2019-07-01] MEDS: POVIDONE IODINE 10% 28.4 GM OINT TOP (09:00)
[2019-07-01] MEDS: LORAZEPAM 2 MG INJ IV (15:08)
[2019-07-01] MEDS: DOXAZOSIN 2 MG TAB PO (21:00)
[2019-07-02] MEDS: PANTOPRAZOLE (EC) 40 MG TAB PO (05:14)
[2019-07-02] MEDS: CEFEPIME 1GM/50 ML (PMX) 50 ML IVPB (08:15)
[2019-07-02] MEDS: POLYETHYLENE GLYCOL 17 GM PACKET PO (08:15)
[2019-07-02] MEDS: CELECOXIB 100 MG CAP PO ×2 (08:16→21:18)
[2019-07-02] MEDS: FLUCONAZOLE 100 MG TAB PO (08:16)
[2019-07-02] MEDS: SEVELAMER CARBONATE 800 MG TABLET PO ×3 (08:16→17:24)
[2019-07-02] MEDS: ASPIRIN (EC) 81 MG TAB PO (08:16)
[2019-07-02] MEDS: LOSARTAN 25 MG TAB PO ×2 (08:18→21:20)
[2019-07-02] MEDS: DOCUSATE SODIUM 100 MG CAP PO ×2 (08:19→21:00)
[2019-07-02] MEDS: NIFEdipine (XL) 60 MG TAB PO ×2 (08:19→21:19)
[2019-07-02] MEDS: DICLOFENAC SODIUM 1% GEL 100 GM TUBE TP ×4 (08:20→21:23)
[2019-07-02] MEDS: POVIDONE IODINE 10% 28.4 GM OINT TOP (09:00)
[2019-07-02] MEDS: HEPARIN 5,000 UNIT/1 ML VIAL SC ×2 (09:42→21:58)
[2019-07-02] MEDS: DAPTOMYCIN 230 MG in SOD CHLORIDE 0.9% 100 ML IVPB (14:17)
[2019-07-02] MEDS: DOXAZOSIN 2 MG TAB PO (21:18)
[2019-07-02] MEDS: QUETIAPINE 25 MG TAB PO (21:19)
[2019-07-03] MEDS: PANTOPRAZOLE (EC) 40 MG TAB PO (06:10)
[2019-07-03] MEDS: FLUCONAZOLE 100 MG TAB PO (08:35)
[2019-07-03] MEDS: CEFEPIME 1GM/50 ML (PMX) 50 ML IVPB (08:35)
[2019-07-03] MEDS: ASPIRIN (EC) 81 MG TAB PO (08:35)
[2019-07-03] MEDS: DOCUSATE SODIUM 100 MG CAP PO ×2 (08:35→21:21)
[2019-07-03] MEDS: CELECOXIB 100 MG CAP PO ×2 (08:35→21:21)
[2019-07-03] MEDS: SEVELAMER CARBONATE 800 MG TABLET PO ×3 (08:36→16:48)
[2019-07-03] MEDS: DICLOFENAC SODIUM 1% GEL 100 GM TUBE TP ×4 (08:41→21:23)
[2019-07-03] MEDS: NIFEdipine (XL) 60 MG TAB PO ×2 (09:00→21:21)
[2019-07-03] MEDS: POVIDONE IODINE 10% 28.4 GM OINT TOP (09:00)
[2019-07-03] MEDS: LOSARTAN 25 MG TAB PO ×2 (09:00→21:22)
[2019-07-03] MEDS: POLYETHYLENE GLYCOL 17 GM PACKET PO (09:00)
[2019-07-03] MEDS: HYDROCODONE/APAP (5/325) TAB PO ×2 (09:42→19:02)
[2019-07-03 09:49] LABS: ADD UMIC YES; UR ASCORBIC ACID NEGATIVE (NEGATIVE); UR BILIRUBIN (Dip) NEGATIVE (NEGATIVE); UR BLOOD (Dip) NEGATIVE (NEGATIVE); UR CLARITY CLEAR (CLEAR); UR COLOR YELLOW (YELLOW); UR GLUCOSE (Dip) NEGATIVE (NEGATIVE); UR KETONES (Dip) NEGATIVE (NEGATIVE); UR LEUKOCYTE ESTERASE (Dip) NEGATIVE Leu/ul (NEGATIVE); UR NITRITE (Dip) NEGATIVE (NEGATIVE); UR RBC 3 /HPF (0-5); UR SPECIFIC GRAVITY (Dip) 1.011 (1.003-1.030); UR TOTAL PROTEIN (Dip) 2+ mg/dl (NEGATIVE); UR UROBILINOGEN (Dip) NEGATIVE (NEGATIVE); UR WBC 4 /HPF (0-5)
[2019-07-03] MEDS: LIDOCAINE 1% (MDV) 20 ML INJ INJ (13:07)
[2019-07-03] MEDS: HEPARIN 5,000 UNIT/1 ML VIAL SC ×2 (14:15→21:53)
[2019-07-03] MEDS: QUETIAPINE 25 MG TAB PO (21:22)
[2019-07-03] MEDS: DOXAZOSIN 2 MG TAB PO (21:23)
[2019-07-04] MEDS: PANTOPRAZOLE (EC) 40 MG TAB PO (05:54)
[2019-07-04] MEDS: HYDROCODONE/APAP (5/325) TAB PO ×2 (06:01→12:45)
[2019-07-04] MEDS: SEVELAMER CARBONATE 800 MG TABLET PO ×2 (09:12→12:28)
[2019-07-04] MEDS: CELECOXIB 100 MG CAP PO (09:13)
[2019-07-04] MEDS: POLYETHYLENE GLYCOL 17 GM PACKET PO (09:14)
[2019-07-04] MEDS: DOCUSATE SODIUM 100 MG CAP PO (09:14)
[2019-07-04] MEDS: FLUCONAZOLE 100 MG TAB PO (09:14)
[2019-07-04] MEDS: ASPIRIN (EC) 81 MG TAB PO (09:14)
[2019-07-04] MEDS: LOSARTAN 25 MG TAB PO (09:14)
[2019-07-04] MEDS: NIFEdipine (XL) 60 MG TAB PO (09:15)
[2019-07-04] MEDS: CEFEPIME 1GM/50 ML (PMX) 50 ML IVPB (09:21)
[2019-07-04] MEDS: HEPARIN 5,000 UNIT/1 ML VIAL SC (09:27)
[2019-07-04] MEDS: DICLOFENAC SODIUM 1% GEL 100 GM TUBE TP ×2 (09:51→13:45)
[2019-07-04] MEDS: POVIDONE IODINE 10% 28.4 GM OINT TOP (09:52)
[2019-07-04] MEDS: DAPTOMYCIN 350 MG in SOD CHLORIDE 0.9% 100 ML IVPB (14:22)
== END 2019-07-04 16:40 | DRG 477 ==
LOC: 6WM 06-21 16:40 → TEL 07-01 01:25 → 2NE 06-05 18:59
PROC: 0SB20ZZ Excision of Lumbar Vertebral Disc, Open Approach (ICD-10-PCS; principal; 2019-06-14 14:32)
PROC: 0QB03ZX Excision of Lumbar Vertebra, Percutaneous Approach, Diagnostic (ICD-10-PCS; 2019-06-14 14:32)
PROC: 01NB0ZZ Release Lumbar Nerve, Open Approach (ICD-10-PCS; 2019-06-14 14:32)
PROC: 00NY0ZZ Release Lumbar Spinal Cord, Open Approach (ICD-10-PCS; 2019-06-14 14:32)
PROC: 0QB00ZZ Excision of Lumbar Vertebra, Open Approach (ICD-10-PCS; 2019-06-14 14:32)
PROC: 0MBD0ZZ Excision of Lower Spine Bursa and Ligament, Open Approach (ICD-10-PCS; 2019-06-14 14:32)
PROC: 05PY03Z Removal of Infusion Device from Upper Vein, Open Approach (ICD-10-PCS; 2019-06-14 14:32)
PROC: 4A11X4G Monitoring of Peripheral Nervous Electrical Activity, Intraoperative, External Approach (ICD-10-PCS; 2019-06-14 14:32)
PROC: 30233K1 Transfusion of Nonautologous Frozen Plasma into Peripheral Vein, Percutaneous Approach (ICD-10-PCS; 2019-06-14 14:32)
PROC: 30233N1 Transfusion of Nonautologous Red Blood Cells into Peripheral Vein, Percutaneous Approach (ICD-10-PCS; 2019-06-14 14:32)
PROC: 0JPT3XZ Removal of Tunneled Vascular Access Device from Trunk Subcutaneous Tissue and Fascia, Percutaneous Approach (ICD-10-PCS; 2019-06-14 14:32)
PROC: 02HV33Z Insertion of Infusion Device into Superior Vena Cava, Percutaneous Approach (ICD-10-PCS; 2019-06-14 14:32)
PROC: 5A1D70Z Performance of Urinary Filtration, Intermittent, Less than 6 Hours Per Day (ICD-10-PCS; 2019-06-14 14:32)
DX: M46.46 Discitis, unspecified, lumbar region (principal); N18.6 End stage renal disease; G92 Toxic encephalopathy; G06.2 Extradural and subdural abscess, unspecified; I12.0 Hypertensive chronic kidney disease with stage 5 chronic kidney disease or end stage renal disease; M46.26 Osteomyelitis of vertebra, lumbar region; D68.4 Acquired coagulation factor deficiency; M46.47 Discitis, unspecified, lumbosacral region; D63.1 Anemia in chronic kidney disease; E87.5 Hyperkalemia; E78.5 Hyperlipidemia, unspecified; H49.21 Sixth [abducent] nerve palsy, right eye; H55.89 Other irregular eye movements; K21.9 Gastro-esophageal reflux disease without esophagitis; K80.20 Calculus of gallbladder without cholecystitis without obstruction; K76.9 Liver disease, unspecified; M89.8X8 Other specified disorders of bone, other site; M48.061 Spinal stenosis, lumbar region without neurogenic claudication; R53.81 Other malaise; R29.6 Repeated falls; Z99.2 Dependence on renal dialysis
CPT/HCPCS: 36430; 36569; 36589; 70450; 70551; 71045; 72114; 72131; 72146; 72148; 72149; 72196; 73510; 73520; 73562-50; 76700; 76937; 77012; 80048; 80053; 80061; 80202; 81001; 82140; 82550; 83036; 83540; 83735; 84100; 84145; 84153; 84154; 84484; 85025; 85049; 85610; 85651; 85670; 85730; 86140; 86704; 86709; 86803; 86850; 86900; 86901; 86920; 87040-91; 87070; 87075; 87081; 87086; 87102; 87116; 87340; 88300; 88304; 88305; 88313; 90935; 93005; 93306; 97110; 97116; 97162; 97164; 97530